=== PATIENT | male | born 1950 | race Caucasian/White ===

== ENCOUNTER 2017-05-12 17:10 | Inpatient (IN) | payer MEDICARE, OTHER ==
[~2017-05-12] VITALS: Ht 180.3 cm; Wt 111.7 kg
[2017-05-12 18:10] VITALS: BP 135/69
[2017-05-12] MEDS ORDERED: fentaNYL INJECTION 100 MCG/2 ML AMP ONE (18:40)
[2017-05-12 19:00] VITALS: BP 129/61
[2017-05-12 19:00] LABS: BASOPHILS % (AUTO) 0 % (0-10); EOSINOPHILS % (AUTO) 0 % (0-10); LYMPHOCYTES # (AUTO) 0.5 X 10^3 (1.0-4.0); LYMPHOCYTES % (AUTO) 2 % (12-44); MEAN CORPUSCULAR HEMOGLOBIN 27 PG (25-34); MEAN CORPUSCULAR HGB CONC 32 G/DL (32-36); MEAN CORPUSCULAR VOLUME 87 FL (80-99); MEAN PLATELET VOLUME 12.2 FL (7.4-10.4); MONOCYTES # (AUTO) 0.4 X 10^3 (0.0-1.0); MONOCYTES % (AUTO) 2 % (0-12); NEUTROPHILS # (AUTO) 22.4 X 10^3 (1.8-7.8); NEUTROPHILS % (AUTO) 96 % (42-75); PLATELET COUNT 339 10^3/uL (130-400); RED BLOOD COUNT 4.66 10^6/uL (4.35-5.85); RED CELL DISTRIBUTION WIDTH 17.7 % (10.0-14.5); WHITE BLOOD COUNT 23.2 10^3/uL (4.3-11.0)
[2017-05-12] MEDS ORDERED: fentaNYL PCA 300 MCG/30 ML VIAL ONE (19:11)
[2017-05-12] MEDS ORDERED: 1/2 NS W/KCL 20 MEQ/L 1,000 ML IV ONE (19:12)
[2017-05-12 19:21] LABS: ALANINE AMINOTRANSFERASE 27 U/L (0-55); ALBUMIN 3.4 GM/DL (3.2-4.5); AMYLASE 20 U/L (25-125); ANION GAP 14 MMOL/L (5-14); ASPARTATE AMINO TRANSFERASE 43 U/L (5-34); BILIRUBIN,TOTAL 0.3 MG/DL (0.1-1.0); BLOOD UREA NITROGEN 22 MG/DL (7-18); BUN/CREATININE RATIO 13 (0-20); CALCIUM 8.3 MG/DL (8.5-10.1); CARBON DIOXIDE 18 MMOL/L (21-32); CHLORIDE 107 MMOL/L (98-107); CREATININE SERUM 1.75 MG/DL (0.60-1.30); GFR ESTIMATED 39; GLUCOSE 358 MG/DL (70-105); HEMOLYSIS 6 (-100-29); ICTERUS 0.1 (-100-1.9); LIPASE < 4 U/L (8-78); LIPEMIA -1 (-100-49); POTASSIUM 4.8 MMOL/L (3.6-5.0); SODIUM 139 MMOL/L (135-145); TOTAL PROTEIN 6.9 GM/DL (6.4-8.2)
--- NOTE | 2017-05-12 19:33 | Diagnostic Imaging Report ---
EXAM: CHEST 1 VIEW, AP/PA ONLY INDICATION: Pneumothorax. COMPARISON: None. FINDINGS: Markedly low lung volumes. Left chest tube. No pneumothorax. Probable small left pleural effusion. Bibasilar atelectasis. Normal heart size. No acute osseous findings. Surgical clips in the upper abdomen. Epidural spinal stimulator. IMPRESSION: Left chest tube. Markedly low lung volumes. No pneumothorax identified. Probable small left pleural effusion. Dictated by: Dictated on workstation # [id number]
[2017-05-12 20:00] VITALS: BP 125/64
[2017-05-12] MEDS ORDERED: FUROSEMIDE 40 MG/4 ML INJ (LASIX) IVP PRN (20:45)
[2017-05-12 21:00] VITALS: BP 135/62
[2017-05-12] MEDS: inSUlin (REGULAR) HUMAN 1 UNIT/0.01 ML (CHARGE PER UNIT) SC SCH (21:00)
[2017-05-12 22:00] VITALS: BP 133/67
--- NOTE | 2017-05-12 22:56 | Progress Note-Standard ---
Standard Progress Note Progress Notes/Assess & Plan Date Seen by Provider: May 12, 2017 Time Seen by Provider: 17:30 Progress/Assessment & Plan s/p extensive ERICKA and laparoscopic gastric sleeve resection. spontaneous left PTX during surgery. 24 Fr chest tube placed. no air leak no drainage. multiple medical comorbidities including liver cirrhosis, OLGA, and CHF. will manage conservatively. NPO, bowel rest, abx and monitor labs. when stable then phase 1 clear liquid diet slowly. JOSEPHINE NOBLE MD May 12, 2017 22:56
[2017-05-12 23:00] VITALS: BP 143/74
[2017-05-13] VITALS (17 sets, daily range): BP systolic 135–193; BP diastolic 59–81
[2017-05-13] MEDS ORDERED: fentaNYL PCA 300 MCG/30 ML VIAL ONE (00:20)
[2017-05-13] MEDS: fentaNYL PCA 300 MCG/30 ML VIAL IV PRN ×5 (00:39→19:29)
[2017-05-13 04:25] LABS: BASOPHILS % (AUTO) 0 % (0-10); EOSINOPHILS % (AUTO) 0 % (0-10); LYMPHOCYTES # (AUTO) 1.1 X 10^3 (1.0-4.0); MEAN CORPUSCULAR HEMOGLOBIN 27 PG (25-34); MEAN CORPUSCULAR HGB CONC 32 G/DL (32-36); MEAN CORPUSCULAR VOLUME 86 FL (80-99); MEAN PLATELET VOLUME 12.2 FL (7.4-10.4); MONOCYTES # (AUTO) 1.1 X 10^3 (0.0-1.0); MONOCYTES % (AUTO) 8 % (0-12); NEUTROPHILS # (AUTO) 11.5 X 10^3 (1.8-7.8); NEUTROPHILS % (AUTO) 83 % (42-75); PLATELET COUNT 328 10^3/uL (130-400); RED CELL DISTRIBUTION WIDTH 17.7 % (10.0-14.5); WHITE BLOOD COUNT 13.7 10^3/uL (4.3-11.0)
[2017-05-13 04:27] LABS: LYMPHOCYTES % (AUTO) 9 % (12-44)
[2017-05-13 04:51] LABS: CALCIUM 8.3 MG/DL (8.5-10.1); CREATININE SERUM 1.5 MG/DL (0.60-1.30); ICTERUS 0.1 (-100-1.9); MAGNESIUM 2.1 MG/DL (1.8-2.4); PHOSPHORUS 2.9 MG/DL (2.3-4.7)
[2017-05-13 04:54] LABS: POTASSIUM 5.4 MMOL/L (3.6-5.0)
[2017-05-13] MEDS ORDERED: 1/2 NS W/KCL 20 MEQ/L 1,000 ML IV ONE (05:53)
[2017-05-13] MEDS ORDERED: POTASSIUM CL 10MEQ/50ML IVPB 50 ML IV SCH (06:00)
[2017-05-13] MEDS ORDERED: MAGNESIUM 1 GM/100 ML IVPB 100 ML IV SCH (06:00)
[2017-05-13] MEDS ORDERED: ONDANSETRON 4 MG/2 ML (SDV) Z0FRAN ONE (06:10)
[2017-05-13] MEDS: inSUlin (REGULAR) HUMAN 1 UNIT/0.01 ML (CHARGE PER UNIT) SC SCH ×4 (06:10→22:40)
[2017-05-13] MEDS: NS IV 1000 ML 1,000 ML IV SCH ×2 (06:24→18:28)
[2017-05-13] MEDS ORDERED: ONDANSETRON 4 MG/2 ML (SDV) Z0FRAN IV PRN (06:30)
--- NOTE | 2017-05-13 07:02 | Pulmonary Consultation ---
History of Present Illness History of Present Illness Date of Consultation 05/13/17 06:57 Time Seen by Provider: 06:20 Date of Admission History of Present Illness 66yo with hx of cirrhosis, OLGA (compliant with CPAP), and CHF PT is s/p gastric sleeve and developed spontaneous left PTX he now has a 24fr chest tube in place and is to suction currently. Left lung reexpanded post chest tube and this AM CXR shows no PTX. There is no leak in chest tube system currently. Pt is doing better c/w yesterday. He has never had PTX in the past. I am consulted for ICU management. Allergies and Home Medications Allergies Coded Allergies: codeine (Verified Allergy, Severe, 05/12/17) metoclopramide (Verified Allergy, Severe, 05/12/17) metoprolol (Verified Allergy, Mild, 05/12/17) SENSITIVITY TO MEDICATION DOSING. Home Medications Amlodipine Besylate 10 Mg Tablet, 10 MG PO HS, (Reported) Aspirin 81 Mg Tablet.dr, 81 MG PO DAILY, (Reported) Diphenhydramine HCl 25 Mg Capsule, 25 MG PO HS, (Reported) Furosemide 20 Mg Tablet, 20 MG PO DAILY PRN for SWELLING, (Reported) Insulin Glargine,Hum.rec.anlog 100 Unit/1 Ml Insuln.pen, 70 UNITS SC HS, ( Reported) Insulin Lispro 100 Unit/1 Ml Insuln.pen, 15-45 UNITS SC AC, (Reported) Ondansetron HCl 4 Mg Tablet, 4 MG PO Q6H PRN for NAUSEA/VOMITING-1ST LINE, ( Reported) Pantoprazole Sodium 40 Mg Tablet.dr, 40 MG PO DAILY, (Reported) Pregabalin 75 Mg Capsule, 75 MG PO DAILY, (Reported) Pregabalin 75 Mg Capsule, 150 MG PO HS, (Reported) TAKES 2 (75MG) CAPSULES Rosuvastatin Calcium 20 Mg Tablet, 20 MG PO HS, (Reported) Venlafaxine HCl 75 Mg Cap.er.24h, 75 MG PO DAILY, (Reported) Past Fgptmsl-Rzamjo-Azzmvx Hx Patient Social History Alcohol Use: Denies Use Recreational Drug Use: No Smoking Status: Former Smoker Recent Foreign Travel: No Contact w/Someone Who Travel: No Recent Infectious Disease Expo: No Recent Hopitalizations: Yes (February for back procedure, September for left great toe amputation) Physical Abuse Screen: No Sexual Abuse: No Immunizations Up To Date PED Vaccines UTD: No Date of Pneumonia Vaccine: Sep 17, 2016 Seasonal Allergies Seasonal Allergies: No Respiratory Respiratory Disorders: Sleep Apnea Reproductive System Sexually Transmitted Disease: No HIV/AIDS: No Gastrointestinal Gastrointestinal Disorders: Pancreatitis, Cirrhosis Musculoskeletal Musculoskeletal Disorders: Chronic Back Pain HEENT HEENT Disorders: Cataract Loss of Vision: Denies Hearing Impairment: Hard of Hearing, Bilateral Hearing Aide Review of Systems Time Seen by Provider: 08:24 Exam Exam Vital Signs Date Time Temp Pulse Resp B/P (MAP) Pulse Ox O2 Delivery O2 Flow Rate FiO2 05/13/17 06:05 12 05/13/17 06:00 71 13 152/66 94 NIV CPAP 3.00 05/13/17 05:00 78 22 162/72 95 NIV CPAP 3.00 05/13/17 04:00 94 NIV CPAP 3.00 05/13/17 04:00 74 27 153/66 94 NIV CPAP 3.00 05/13/17 03:54 98.2 NIV CPAP 3.00 05/13/17 03:00 79 15 151/72 94 NIV CPAP 3.00 05/13/17 02:00 81 13 152/66 93 NIV CPAP 3.00 05/13/17 01:00 86 05/13/17 01:00 86 22 147/59 94 NIV CPAP 3.00 05/13/17 00:39 19 05/13/17 00:33 19 05/13/17 00:00 94 NIV CPAP 3.00 05/13/17 00:00 86 14 135/65 94 NIV CPAP 3.00 05/12/17 23:00 90 19 143/74 94 NIV CPAP 3.00 05/12/17 22:00 92 17 133/67 92 NIV CPAP 3.00 05/12/17 21:15 92 NIV CPAP 3.00 05/12/17 21:14 NIV CPAP 3.00 05/12/17 21:00 92 23 135/62 90 OxyMask 10.00 05/12/17 20:00 94 NIV CPAP 3.00 05/12/17 20:00 83 17 125/64 92 OxyMask 10.00 05/12/17 19:38 16 05/12/17 19:25 97.7 OxyMask 10.00 05/12/17 19:00 87 19 129/61 92 OxyMask 10.00 05/12/17 19:00 87 05/12/17 18:10 97.8 102 16 135/69 90 OxyMask 10.00 05/12/17 18:10 OxyMask 10.00 I & O 05/13/17 07:00 Intake Total 1000 ml Output Total 1225 ml Balance -225 ml General Appearance: No Apparent Distress, WD/WN Neck: Full Range of Motion, Normal Inspection Respiratory: Chest Non Tender, No Accessory Muscle Use, No Respiratory Distress , Decreased Breath Sounds Capillary Refill: Less Than 3 Seconds Results Lab Laboratory Tests 05/12/17 18:54 05/13/17 03:53 Assessment/Plan Assessment/Plan S/p gastric sleeve - pain control spontaneous PTX - now resolved on CXR and no leak in chest tube system. -PTX resolved quickly after chest tube placement. I am going to proceed with chest tube clamping and repeat CXR in 4 hrs. I discussed with Dr. Knight and he agrees. With nature of PTX and the quick resolution i believe we will be able expedite d/cing chest tube. Leukocytosis - probably reactive -monitor OLGA -He has CPAP at bedside CHF -monitor acute renal failure with metabolic acidosis -improving -monitor -IVF Hyperkalameia -? hemolyzed -repeat Chem at 11:00 60 mins spent with patient and medical staff. I also d/w Dr. Knight plan of care. Clinical Quality Measures DVT/VTE Risk/Contraindication: Risk Factor Score Per Nursin RFS Level Per Nursing on Admit: 4+=Very High EVERETT SEVILLA DO May 13, 2017 07:02
[2017-05-13] MEDS ORDERED: ROSU20TA PO (08:21)
[2017-05-13] MEDS ORDERED: PREG75CA PO ×2 (08:21)
[2017-05-13] MEDS ORDERED: ASPI-983 PO (08:21)
[2017-05-13] MEDS ORDERED: DIPH25CA79 PO (08:21)
[2017-05-13] MEDS ORDERED: PANT40TA3 PO (08:21)
[2017-05-13] MEDS ORDERED: INSU100I23 SC (08:21)
[2017-05-13] MEDS ORDERED: FURO20TA4 PO (08:21)
[2017-05-13] MEDS ORDERED: VENL75CA93 PO (08:21)
[2017-05-13] MEDS ORDERED: ONDA4TAB10 PO (08:21)
[2017-05-13] MEDS ORDERED: INSU100I10 SC (08:21)
[2017-05-13] MEDS ORDERED: AMLO10TA2 PO (08:21)
--- NOTE | 2017-05-13 09:07 | Diagnostic Imaging Report ---
EXAMINATION: Portable upright radiograph of the chest. INDICATION: Left pneumothorax. COMPARISON: 05/12/2017. FINDINGS: There is a left-sided chest tube. No pneumothorax is seen. There is left basilar atelectasis, however. A small left pleural effusion is probably present. There is improved right basilar atelectasis when compared to 05/12/2017. Overall, there is slight improvement in the lung volumes. The heart size is at the upper limits of normal. Pulse generators projecting over the lower thoracic spine are seen. IMPRESSION: Bibasilar atelectasis and suggestion of a small left effusion, slightly improved from the prior exam. Dictated by: Dictated on workstation # [id number]
--- NOTE | 2017-05-13 09:14 | Consultation-Hospitalist ---
HPI History of Present Illness: HPI/Chief Complaint CC: Medical management following a complicated gastric sleeve procedure with subsequent left pneumothorax HPI: This is a 66-year-old white male clinic patient of Lorraine Foster in [place] the presents to the ICU at [facility] transferred from [facility] from Dr. 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 Currently he is feeling well able to move around and pneumothorax chest tube has been clamped in preparation removal later today. Overall he did not require any type of ventilator support through the night and has had no issues since admitted to the ICU. Source: patient Exam Limitations: no limitations Date Seen 05/13/17 Attending Physician Audrey Knight MD PCP Eleanor Foster Referring Physician Date of Admission May 12, 2017 at 18:21 Home Medications & Allergies Home Medications Reviewed patient Home Medication Reconciliation Form Allergies Allergies Coded Allergies codeine (Verified Allergy, Severe, 05/12/17) metoclopramide (Verified Allergy, Severe, 05/12/17) metoprolol (Verified Allergy, Mild, 05/12/17) SENSITIVITY TO MEDICATION DOSING. Past Hwhxggu-Srsars-Wlgslz Hx Patient Social History Marrital Status: Employed/Student: retired Alcohol Use: Denies Use Recreational Drug Use: No Smoking Status: Former Smoker Physical Abuse Screen: No Sexual Abuse: No Recent Foreign Travel: No Contact w/other who traveled: No Recent Hopitalizations: Yes (February for back procedure, September for left great toe amputation) Recent Infectious Disease Expo: No Immunizations Up To Date Date of Pneumonia Vaccine: Sep 17, 2016 Seasonal Allergies Seasonal Allergies: No Surgeries HX Surgeries: Yes Surgeries: Abdominal Respiratory Hx Respiratory Disorders: Yes Respiratory Disorders: Sleep Apnea Cardiovascular Hx Cardiovascular Disorders: Yes Cardiac Disorders: Hypertension Neurological Hx Neurological Disorders: No Reproductive System Sexually Transmitted Disease: No HIV/AIDS: No Genitourinary Hx Genitourinary Disorders: No Gastrointestinal Hx Gastrointestinal Disorders: Yes Gastrointestinal Disorders: Pancreatitis, Cirrhosis Musculoskeletal Hx Musculoskeletal Disorders: Yes Musculoskeletal Disorders: Chronic Back Pain Endocrine Hx Endocrine Disorders: No HEENT HX ENT Disorders: No HEENT Disorders: Cataract Loss of Vision: Denies Hearing Impairment: Hard of Hearing, Bilateral Hearing Aide Review of Systems Date Seen by Provider: May 13, 2017 Time Seen by Provider: 09:30 Constitutional: see HPI EENTM: no symptoms reported Respiratory: other (chest tube pain left side) Cardiovascular: no symptoms reported Gastrointestinal: no symptoms reported Genitourinary: no symptoms reported Musculoskeletal: no symptoms reported Skin: no symptoms reported Psychiatric/Neurological: No Symptoms Reported All Other Systems Reviewed Negative Unless Noted: Yes Physical Exam Physical Exam Vital Signs Vital Sign - Last 12Hours 05/12/17 18:10 Temp 97.8 Pulse 102 Resp 16 B/P (MAP) 135/69 Pulse Ox 90 O2 Delivery OxyMask O2 Flow Rate 10.00 Capillary Refill : Less Than 3 Seconds General Appearance: No Apparent Distress, WD/WN, Chronically ill, Obese Eyes: Bilateral Eye Normal Inspection, Bilateral Eye PERRL HEENT: PERRL/EOMI, Normal ENT Inspection, Pharynx Normal Neck: Full Range of Motion, Normal Inspection, Non Tender, Supple, Carotid Bruit Respiratory: Chest Non Tender, Lungs Clear, Normal Breath Sounds, No Accessory Muscle Use, No Respiratory Distress Cardiovascular: Regular Rate, Rhythm, No Edema, No Gallop, No JVD, No Murmur, Normal Peripheral Pulses Gastrointestinal: Normal Bowel Sounds, No Organomegaly, No Pulsatile Mass, Non Tender, Soft Back: Normal Inspection, No CVA Tenderness, No Vertebral Tenderness Extremity: Normal Capillary Refill, Normal Inspection, Normal Range of Motion, Non Tender, No Calf Tenderness, No Pedal Edema Neurologic/Psychiatric: Alert, Oriented x3, No Motor/Sensory Deficits, Normal Mood/Affect Skin: Normal Color, Warm/Dry Lymphatic: No Adenopathy Results Results/Procedures Lab Laboratory Tests 05/12/17 18:54 05/13/17 03:53 Assessment/Plan Admission Diagnosis Assessment: Complicated gastric sleeve procedure resulting in 4 hours of surgery with adhesions and left-sided pneumothorax status post chest tube placement Hypertension History of pancreatitis status post resection remotely Obstructive sleep apnea compliant with treatment DM GERD Assessment and Plan Plan: Maintain on all home meds Pain control Chest tube removal when surgery deems criteria are met Sleep apnea treatment Ambulate Clinical Quality Measures DVT/VTE Risk/Contraindication: Risk Factor Score Per Nursin RFS Level Per Nursing on Admit: 4+=Very High EVERETT WINKLER DO May 13, 2017 09:14
--- OUTSIDE RECORDS SUMMARY | 2017-05-13 09:24 | XMS REPORT | Continuity of Care Document ---
Author Author [facility] Organization [facility] Address Unknown Phone Unavailable Care Team Providers Care Branch Banker Name Role Phone Nya Fosterna PCP [phone] Source Comments Some departments are not documenting in the electronic medical record. If you do not see the information that you expected, contact Release of Information in the Health Information Management department at [phone] for further assistance in locating additional records.[facility] Active Allergies and Adverse Reactions Allergen Noted Date Severity Reactions Comments Codeine 08/13/2013 RASH Reglan 08/13/2013 NAUSEA AND VOMITING Current Medications Prescription Sig. Disp. Refills Start End Date Status Date PARoxetine (PAXIL) 20 mg Take 20 mg by mouth Active tablet daily. NVPUTS-KXAPRXC-DKREQLZ PO Take by mouth three Active times daily. pantoprazole DR Take 40 mg by mouth twice Active (PROTONIX) 40 mg tablet daily. hydrOXYzine (ATARAX) 25 Take 25 mg by mouth three Active mg tablet times daily as needed. insulin NPH/REG 70/30 Inject into area(s) as Active (NOVOLIN 70/30) 100 directed twice daily unit/mL (70/30) injection before meals. oxyCODone (OXY-IR) 30 mg Take 30 mg by mouth every Active tablet 4 hours as needed ondansetron (ZOFRAN) 8 mg Take 8 mg by mouth every Active tablet 8 hours as needed. GUAIFENESIN (MUCINEX PO) Take by mouth. Active ibuprofen (MOTRIN) 200 mg Take 200 mg by mouth Active tablet every 6 hours as needed. AMLODIPINE BESYLATE Take 10 mg by mouth Active (NORVASC PO) daily. benazepril (LOTENSIN) 20 Take 20 mg by mouth Active mg tablet daily. simvastatin (ZOCOR) 20 mg Take 20 mg by mouth at Active tablet bedtime daily. dicyclomine (BENTYL) 10 Take 10 mg by mouth four Active mg capsule times daily. gabapentin (NEURONTIN) Take 300 mg by mouth Active 300 mg capsule three times daily. diphenoxylate/atropine Take 1 Tab by mouth four Active (LOMOTIL) 2.5/0.025 mg times daily as needed. tablet aspirin 81 mg chewable Take 81 mg by mouth Active tablet daily. albuterol-ipratropium Inhale 3 mL solution as Active (DUO-NEB, DUO-VENT) 0.5 directed three times mg-3 mg(2.5 mg base)/3 mL daily as needed. nebulizer solution DORZOLAMIDE HCL/TIMOLOL Place into or around Active MALEAT eye(s). (DORZOLAMIDE-TIMOLOL OP) latanoprost (XALATAN) Place 1 Drop into or Active 0.005 % ophthalmic around eye(s) at bedtime solution daily. pioglitazone (ACTOS) 30 Take 1 Tab by mouth 90 Tab 3 08/13/20 Active mg tablet daily. 13 INSULIN Inject into area(s) as Active GLARGINE,HUM.REC.ANLOG directed. (LANTUS SC) insulin pump -LISPRO- by SubQ Pump route. Active Patients Own rifaximin (XIFAXAN) 550 Take 1 Tab by mouth twice 60 Tab 11 03/14/20 Active mg tab daily. 14 liraglutide(+) (VICTOZA Inject 0.3 mL into 3 Syringe 11 09/19/20 Active 3-SHERRY) 0.6 mg/0.1 mL (18 area(s) as directed 14 mg/3 mL) pnij daily. nadolol(+) (CORGARD) 40 Take 1 Tab by mouth at 30 Tab 11 05/25/20 Active mg tablet bedtime daily. 15 Active Problems Problem Noted Date Cirrhosis (HCC) 09/19/2014 DM (diabetes mellitus) (HCC) 03/14/2014 CLEMENTS (nonalcoholic steatohepatitis) 03/14/2014 Obesity 03/14/2014 Social History Tobacco Use Types Packs/Day Years Used Date Former Smoker Quit: 08/13/1989 Smokeless Tobacco: Former Quit: User 08/13/1991 Alcohol Use Drinks/Week oz/Week Comments No former Last Filed Vital Signs Vital Sign Reading Time Taken Blood Pressure 153/62 09/19/2014 10:44 AM [employer] Pulse 76 09/19/2014 10:44 AM [employer] Temperature 36.3 C (97.4 F) 09/19/2014 10:44 AM [employer] Respiratory Rate 17 09/19/2014 10:44 AM [employer] Height 1.803 m (5' 11") 09/19/2014 10:44 AM [employer] Weight 119.296 kg (263 lb) 09/19/2014 10:44 AM [employer] Body Mass Index 36.7 09/19/2014 10:44 AM [employer] Oxygen Saturation 98% 09/19/2014 10:44 AM [employer] Plan of Care Health Maintenance Due Date Last Done Comments Hepatitis C Screening 1950 Physical (Comprehensive) 1957 Exam Pertussis Vaccine 1961 Tetanus Vaccine 1967 Colorectal Cancer 2000 Screening Shingles Vaccine 2010 Abdominal Aortic Aneurysm 2015 Screening Prevnar/Pneumovax (#1) 2015 Influenza Vaccine 07/18/2017 Results from Last 3 Months Not on file
[2017-05-13] MEDS ORDERED: FUROSEMIDE 20 MG (LASIX) TAB PO PRN (10:45)
[2017-05-13] MEDS ORDERED: INSULIN LISPRO 20 UNIT SC SCH (11:00)
[2017-05-13 11:28] LABS: CALCIUM 8.7 MG/DL (8.5-10.1); CREATININE SERUM 1.33 MG/DL (0.60-1.30); ICTERUS 0.1 (-100-1.9); POTASSIUM 4.5 MMOL/L (3.6-5.0)
[2017-05-13] MEDS: ONDANSETRON 4 MG (ZOFRAN) ORAL DISSOLVE TAB PO PRN (11:37)
--- NOTE | 2017-05-13 11:57 | Diagnostic Imaging Report ---
EXAMINATION: Portable upright radiograph of the chest. INDICATION: Followup left pneumothorax. FINDINGS: There is a left chest tube again seen. No pneumothorax. Bibasilar atelectasis is again noted with low lung volumes. There is suggestion of a small left pleural effusion. A pulse generator projecting over the lower thoracic spine is seen. IMPRESSION: No pneumothorax. Low lung volumes with bibasilar atelectasis. Dictated by: Dictated on workstation # [id number]
[2017-05-13] MEDS: inSUlin ASPART (NovoLOG) 1 UNIT/0.01 ML (CHARGE PER UNIT) SC SCH ×2 (12:15→16:00)
--- NOTE | 2017-05-13 14:49 | Progress Note (SOAP) ---
Subjective Date Seen by Provider: May 13, 2017 Time Seen by Provider: 14:00 Subjective/Events-last exam doing well. pain controlled. no nausea/vomiting. no SOB. no airleak or any drainage. Objective Exam Vital Signs Date Time Temp Pulse Resp B/P (MAP) Pulse Ox O2 Delivery O2 Flow Rate FiO2 05/13/17 13:00 64 05/13/17 12:04 23 05/13/17 12:00 Nasal Cannula 2.00 05/13/17 10:07 Nasal Cannula 3.00 05/13/17 09:00 71 17 174/71 91 Nasal Cannula 2.00 05/13/17 08:00 Nasal Cannula 2.00 05/13/17 08:00 98.6 Nasal Cannula 2.00 05/13/17 08:00 76 16 172/70 92 Nasal Cannula 2.00 05/13/17 07:00 69 22 148/66 93 Nasal Cannula 2.00 05/13/17 07:00 69 05/13/17 06:05 12 05/13/17 06:00 71 13 152/66 94 NIV CPAP 3.00 05/13/17 05:00 78 22 162/72 95 NIV CPAP 3.00 05/13/17 04:00 94 NIV CPAP 3.00 05/13/17 04:00 74 27 153/66 94 NIV CPAP 3.00 05/13/17 03:54 98.2 NIV CPAP 3.00 05/13/17 03:00 79 15 151/72 94 NIV CPAP 3.00 05/13/17 02:00 81 13 152/66 93 NIV CPAP 3.00 05/13/17 01:00 86 05/13/17 01:00 86 22 147/59 94 NIV CPAP 3.00 05/13/17 00:39 19 05/13/17 00:33 19 05/13/17 00:00 94 NIV CPAP 3.00 05/13/17 00:00 86 14 135/65 94 NIV CPAP 3.00 05/12/17 23:00 90 19 143/74 94 NIV CPAP 3.00 05/12/17 22:00 92 17 133/67 92 NIV CPAP 3.00 05/12/17 21:15 92 NIV CPAP 3.00 05/12/17 21:14 NIV CPAP 3.00 05/12/17 21:00 92 23 135/62 90 OxyMask 10.00 05/12/17 20:00 94 NIV CPAP 3.00 05/12/17 20:00 83 17 125/64 92 OxyMask 10.00 05/12/17 19:38 16 05/12/17 19:25 97.7 OxyMask 10.00 05/12/17 19:00 87 19 129/61 92 OxyMask 10.00 05/12/17 19:00 87 05/12/17 18:10 97.8 102 16 135/69 90 OxyMask 10.00 05/12/17 18:10 OxyMask 10.00 I & O 05/13/17 07:00 Intake Total 1000 ml Output Total 1225 ml Balance -225 ml Capillary Refill : Less Than 3 Seconds General Appearance: No Apparent Distress HEENT: PERRL/EOMI Neck: Full Range of Motion Respiratory: Lungs Clear, Normal Breath Sounds Cardiovascular: Regular Rate, Rhythm Gastrointestinal: normal bowel sounds, soft, other (wounds clean/dry) Extremity: Normal Capillary Refill Neurologic/Psychiatric: Alert, Oriented x3 Skin: Normal Color Lymphatic: No Adenopathy Results Lab Laboratory Tests 05/12/17 18:54: White Blood Count 23.2H, Red Blood Count 4.66, Hemoglobin 12.7L, Hematocrit 40, Mean Corpuscular Volume 87, Mean Corpuscular Hemoglobin 27, Mean Corpuscular Hemoglobin Concent 32, Red Cell Distribution Width 17.7H, Platelet Count 339, Mean Platelet Volume 12.2H, Neutrophils (%) (Auto) 96H, Lymphocytes (%) (Auto) 2L, Monocytes (%) (Auto) 2, Eosinophils (%) (Auto) 0, Basophils (%) (Auto) 0, Neutrophils # (Auto) 22.4H, Lymphocytes # (Auto) 0.5L, Monocytes # (Auto) 0.4, Eosinophils # (Auto) 0.0, Basophils # (Auto) 0.0, Sodium Level 139, Potassium Level 4.8, Chloride Level 107, Carbon Dioxide Level 18L, Anion Gap 14, Blood Urea Nitrogen 22H, Creatinine 1.75H, Estimat Glomerular Filtration Rate 39, BUN/ Creatinine Ratio 13, Glucose Level 358H, Calcium Level 8.3L, Total Bilirubin 0.3 , Aspartate Amino Transf (AST/SGOT) 43H, Alanine Aminotransferase (ALT/SGPT) 27 , Alkaline Phosphatase 106, Total Protein 6.9, Albumin 3.4, Amylase Level 20L, Lipase < 4L 05/12/17 20:17: Glucometer 324H 05/13/17 03:53: White Blood Count 13.7H, Red Blood Count 4.40, Hemoglobin 12.0L, Hematocrit 38L , Mean Corpuscular Volume 86, Mean Corpuscular Hemoglobin 27, Mean Corpuscular Hemoglobin Concent 32, Red Cell Distribution Width 17.7H, Platelet Count 328, Mean Platelet Volume 12.2H, Neutrophils (%) (Auto) 83H, Lymphocytes (%) (Auto) 9L, Monocytes (%) (Auto) 8, Eosinophils (%) (Auto) 0, Basophils (%) (Auto) 0, Neutrophils # (Auto) 11.5H, Lymphocytes # (Auto) 1.1, Monocytes # (Auto) 1.1H, Eosinophils # (Auto) 0.0, Basophils # (Auto) 0.0, Sodium Level 138, Potassium Level 5.4H, Chloride Level 108H, Carbon Dioxide Level 18L, Anion Gap 12, Blood Urea Nitrogen 24H, Creatinine 1.50H, Estimat Glomerular Filtration Rate 47, BUN/ Creatinine Ratio 16, Glucose Level 307H, Calcium Level 8.3L, Phosphorus Level 2.9, Magnesium Level 2.1 05/13/17 10:59: Sodium Level 140, Potassium Level 4.5, Chloride Level 107, Carbon Dioxide Level 23, Anion Gap 10, Blood Urea Nitrogen 22H, Creatinine 1.33H, Estimat Glomerular Filtration Rate 54, BUN/Creatinine Ratio 17, Glucose Level 225H, Calcium Level 8.7 05/13/17 12:10: Glucometer 206H Assessment/Plan Assessment/Plan Assess & Plan/Chief Complaint s/p laparoscopic ERICKA and gastric sleeve resection with spontaneous PTX. no airleak or pleuravac drainage. pain controlled. no PTX on f/u cxr. will leave CT in on air leak and monitor for drainage. start phase 1 clear liquid diet. transfer to floor. Clinical Quality Measures DVT/VTE Risk/Contraindication: Risk Factor Score Per Nursin RFS Level Per Nursing on Admit: 4+=Very High JOSEPHINE NOBLE MD May 13, 2017 2:49 pm
[2017-05-13] MEDS ORDERED: CEFEPIME INJECTION 1,000 MG in NS (IVPB) 50 ML IV SCH (21:00)
--- NOTE | 2017-05-13 21:05 | Diagnostic Imaging Report ---
Indication: Followup pneumothorax. Comparison: 05/13/2017 at 11:37 AM. Findings: Stable left chest tube. No radiographically apparent pneumothorax. Possible trace left pleural effusion. Stable very low lung volumes with probable basilar atelectasis. No new airspace disease. Posterior lower lobes are very poorly evaluated by portable radiography and low lung volumes. Stable cardiomegaly. IMPRESSION: 1. Stable left chest tube without radiographically apparent residual pneumothorax. Dictated by: Dictated on workstation # [id number]
[2017-05-13] MEDS: amLODIPine 10 MG (NORVASC) TAB PO SCH (21:43)
[2017-05-13] MEDS: diphenhydrAMINE 25 MG TAB (BENADRYL) PO SCH (21:43)
[2017-05-13] MEDS: ROSUVASTATIN 20 MG (CRESTOR) TABLET PO SCH (21:43)
[2017-05-13] MEDS: PREGABALIN 75 MG (LYRICA) CAP PO SCH (21:43)
[2017-05-13] MEDS ORDERED: CEFEPIME 1 GM (MAXIPIME) VIAL ONE (21:45)
[2017-05-13] MEDS ORDERED: NS (IVPB) 50 ML ONE (21:45)
[2017-05-13] MEDS: inSUlin DETERMIR 1 UNIT/0.01 ML (LEVEMIR) CHARGE PER UNIT SQ SCH (22:40)
[2017-05-14] VITALS (10 sets, daily range): BP systolic 145–188; BP diastolic 67–88
[2017-05-14] MEDS: fentaNYL PCA 300 MCG/30 ML VIAL IV PRN ×2 (00:56→05:55)
[2017-05-14] MEDS: inSUlin ASPART (NovoLOG) 1 UNIT/0.01 ML (CHARGE PER UNIT) SC SCH ×3 (05:53→16:00)
[2017-05-14] MEDS: inSUlin (REGULAR) HUMAN 1 UNIT/0.01 ML (CHARGE PER UNIT) SC SCH ×4 (05:54→21:04)
[2017-05-14 06:35] LABS: BASOPHILS % (AUTO) 0 % (0-10); EOSINOPHILS # (AUTO) 0.1 10^3/uL (0.0-0.3); EOSINOPHILS % (AUTO) 0 % (0-10); LYMPHOCYTES # (AUTO) 2.8 X 10^3 (1.0-4.0); LYMPHOCYTES % (AUTO) 14 % (12-44); MEAN CORPUSCULAR HEMOGLOBIN 27 PG (25-34); MEAN CORPUSCULAR HGB CONC 31 G/DL (32-36); MEAN CORPUSCULAR VOLUME 87 FL (80-99); MEAN PLATELET VOLUME 12.7 FL (7.4-10.4); MONOCYTES # (AUTO) 1.9 X 10^3 (0.0-1.0); MONOCYTES % (AUTO) 10 % (0-12); NEUTROPHILS # (AUTO) 14.4 X 10^3 (1.8-7.8); NEUTROPHILS % (AUTO) 75 % (42-75); PLATELET COUNT 313 10^3/uL (130-400); RED BLOOD COUNT 4.55 10^6/uL (4.35-5.85); RED CELL DISTRIBUTION WIDTH 18.3 % (10.0-14.5); WHITE BLOOD COUNT 19.1 10^3/uL (4.3-11.0)
[2017-05-14 06:53] LABS: ANISOCYTOSIS MODERATE; BAND NEUTROPHILS 0 %; BASOPHILS % (MANUAL) 0 %; EOSINOPHILS % (MANUAL) 1 %; HYPOCHROMASIA MODERATE; LYMPHOCYTES % (MANUAL) 9 %; NEUTROPHILS % (MANUAL) 79 %; POIKILOCYTOSIS SLIGHT; REACTIVE LYMPHOCYTES 2 %; TARGET CELLS SLIGHT
[2017-05-14 06:54] LABS: MICROCYTOSIS SLIGHT
[2017-05-14 07:08] LABS: ALANINE AMINOTRANSFERASE 20 U/L (0-55); ALBUMIN 3.4 GM/DL (3.2-4.5); AMYLASE 20 U/L (25-125); ANION GAP 9 MMOL/L (5-14); ASPARTATE AMINO TRANSFERASE 31 U/L (5-34); BILIRUBIN,TOTAL 0.3 MG/DL (0.1-1.0); BLOOD UREA NITROGEN 20 MG/DL (7-18); BUN/CREATININE RATIO 18; CALCIUM 8.8 MG/DL (8.5-10.1); CARBON DIOXIDE 24 MMOL/L (21-32); CHLORIDE 106 MMOL/L (98-107); CREATININE SERUM 1.13 MG/DL (0.60-1.30); GFR ESTIMATED > 60; GLUCOSE 191 MG/DL (70-105); LIPASE 8 U/L (8-78); MAGNESIUM 2.2 MG/DL (1.8-2.4); PHOSPHORUS 1.8 MG/DL (2.3-4.7); POTASSIUM 4.2 MMOL/L (3.6-5.0); SODIUM 139 MMOL/L (135-145); TOTAL PROTEIN 6.8 GM/DL (6.4-8.2)
[2017-05-14] MEDS: ONDANSETRON 4 MG (ZOFRAN) ORAL DISSOLVE TAB PO PRN (07:33)
[2017-05-14] MEDS: ASPIRIN E.C. 81 MG (ECOTRIN) TAB PO SCH (08:29)
[2017-05-14] MEDS: PANTOPRAZOLE 40 MG (PROTONIX) TAB PO SCH (08:30)
[2017-05-14] MEDS: PREGABALIN 75 MG (LYRICA) CAP PO SCH ×2 (08:30→20:15)
[2017-05-14] MEDS: VENlafaxine XR 75 MG (EFFEXOR XR) CAP PO SCH (08:30)
[2017-05-14] MEDS: NS IV 1000 ML 1,000 ML IV SCH ×2 (08:30→23:08)
[2017-05-14] MEDS ORDERED: LORazepam 0.5 MG (ATIVAN) TABLET PO PRN (09:15)
[2017-05-14] MEDS: CEFEPIME INJECTION 1,000 MG in NS (IVPB) 50 ML IV SCH ×2 (09:25→20:14)
--- NOTE | 2017-05-14 09:38 | Diagnostic Imaging Report ---
EXAMINATION: Portable upright radiograph of the chest. INDICATION: Pneumothorax. COMPARISON: 05/13/2017. FINDINGS: A left chest tube is seen with no pneumothorax. There is a left pleural effusion. Stable bibasilar atelectasis and overall low lung volume, minimally improved from the prior exam. There is a pulse generator projecting over the lower thoracic spine seen. IMPRESSION: Minimally improved bibasilar atelectasis and low lung volumes. Dictated by: Dictated on workstation # [id number]
[2017-05-14] MEDS ORDERED: NS IV SCH (10:30)
[2017-05-14] MEDS ORDERED: FENTANYL IV SCH (10:30)
[2017-05-14] MEDS: LACTULOSE SYRUP 10GM/15ML (ENULOSE) 30ML UDC PO SCH ×2 (10:50→20:15)
[2017-05-14] MEDS: oxyCODONE 5 MG/5 ML ORAL SOLN (roxiCODONE) 5 ML UDC PO PRN ×2 (10:55→15:45)
[2017-05-14] MEDS: RT-ALBUTEROL/IPRATROPIUM 3 ML (DUONEB) VIAL INH SCH ×3 (11:39→19:22)
--- NOTE | 2017-05-14 11:49 | Progress Note-Hospitalist ---
Progress Note HPI/CC on Admission CC: Medical management following a complicated gastric sleeve procedure with subsequent left pneumothorax HPI: This is a 66-year-old white male clinic patient of Lorraine Foster in [place] the presents to the ICU at [facility] transferred from [facility] from Dr. 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 Currently he is feeling well able to move around and pneumothorax chest tube has been clamped in preparation removal later today. Overall he did not require any type of ventilator support through the night and has had no issues since admitted to the ICU. Progress Notes/Assess & Plan Date Seen 05/14/17 Time Seen by Provider: 10:00 Admission Dx/Process Assessment: Complicated gastric sleeve procedure resulting in 4 hours of surgery with adhesions and left-sided pneumothorax status post chest tube placement Hypertension History of pancreatitis status post resection remotely Obstructive sleep apnea compliant with treatment DM GERD Diagonsis/Assessment & Plan Chart Review: No fever Vitals stable WBC 19 CMP norm Sugar 200 CXR improved atelectasis Patient Interview: Pt states that he is experiencing shooting pain where his chest tube is. Pt states that his tummy is sore, but not as bad as where the chest tube is. Physical exam stable. Pt is okay with breathing treatments if they will help DC the chest tube Pt denies having BMs. Pt was informed he will receive meds for this. No fever, vital signs stable, pleasant, in mild pain due to left chest tube Regular rate and rhythm, clear to auscultation bilaterally but diminished in the bases with subtle crackles No edema Assessment: Complicated gastric sleeve procedure resulting in 4 hours of surgery with adhesions and left-sided pneumothorax status post chest tube placement POD # 1 Hypertension History of pancreatitis status post resection remotely Obstructive sleep apnea compliant with treatment DM GERD Plan: Maintain on all home meds Pain control Chest tube removal when surgery deems criteria are met Sleep apnea treatment Ambulate Breathing treatments to expand lungs Possible swingbed if cannot DC chest tube Meds to aid BMs Scribed by Josefina Hurtado under the direct supervision of Dr. Winkler. EVERETT WINKLER DO May 14, 2017 11:49
--- NOTE | 2017-05-14 17:12 | Diagnostic Imaging Report ---
INDICATION: Chest pain. COMPARISON: 05/14/2017 at 5:30 a.m. FINDINGS: Stable left chest tube. No pneumothorax. Stable low lung volumes with increase in patchy basilar airspace opacities, likely due to atelectasis. Possible trace left pleural effusion is unchanged. Stable cardiomegaly. IMPRESSION: 1. Stable left chest tube. No pneumothorax. 2. Persistent bibasilar atelectasis. Dictated by: Dictated on workstation # [id number]
[2017-05-14 17:19] LABS: ABG HCO3 24 MMOL/L (23-27); ABG OXYGEN SATURATION 91 % (94-100); ABG PCO2 46 MMHG (35-45); ABG PO2 59 MMHG (79-93); ABG TCO2 25.4 MMOL/L (21.0-31.0)
[2017-05-14 17:21] LABS: ABG PH 7.34 (7.37-7.43); ALLENS TEST POSITIVE; PATIENT TEMP 98.6
[2017-05-14] MEDS ORDERED: IOHEXOL 350 MG/ML 150 ML (OMNIPAQUE 350) VIAL IV ONE (18:15)
[2017-05-14] MEDS ORDERED: NS 100 ML (IVPB) BAG IV ONE (18:15)
--- NOTE | 2017-05-14 18:26 | Progress Note (SOAP) ---
Subjective Date Seen by Provider: May 14, 2017 Time Seen by Provider: 18:00 Subjective/Events-last exam developed decreased oxygen saturation and increased oxygen demand. still has some chest pain around distribution CT. no airleak. no PTX on repeat CXR. tolerating phase 1 clear liquids. Objective Exam Vital Signs Date Time Temp Pulse Resp B/P (MAP) Pulse Ox O2 Delivery O2 Flow Rate FiO2 05/14/17 15:55 99.0 93 17 188/79 88 Nasal Cannula 2.00 05/14/17 14:52 91 Nasal Cannula 5.00 05/14/17 12:30 98.0 80 18 152/68 94 Nasal Cannula 2.00 05/14/17 11:39 88 Nasal Cannula 3.00 05/14/17 08:35 93 Nasal Cannula 2.00 05/14/17 07:46 97.9 77 18 145/67 93 Nasal Cannula 2.00 05/14/17 06:28 18 05/14/17 04:00 96.4 61 24 165/75 90 NIV CPAP 05/14/17 00:00 97.4 69 20 156/67 91 NIV CPAP 05/13/17 20:20 90 Nasal Cannula 3.00 05/13/17 20:19 85 Room Air 05/13/17 20:00 Nasal Cannula 3.00 05/13/17 19:55 97.8 74 20 156/67 Nasal Cannula 2.00 I & O 05/14/17 07:00 Intake Total 1570 ml Output Total 850 ml Balance 720 ml Capillary Refill : Less Than 3 Seconds General Appearance: No Apparent Distress HEENT: PERRL/EOMI Neck: Full Range of Motion Respiratory: Decreased Breath Sounds, Other (left chest wall tenderness) Cardiovascular: Regular Rate, Rhythm Gastrointestinal: normal bowel sounds, soft, tenderness, other (wounds clean/ dry) Extremity: Normal Capillary Refill Neurologic/Psychiatric: Alert, Oriented x3 Skin: Normal Color Lymphatic: No Adenopathy Results Lab Laboratory Tests 05/13/17 21:04: Glucometer 303H 05/13/17 22:30: Glucometer 285H 05/14/17 05:26: Glucometer 192H 05/14/17 05:45: White Blood Count 19.1H, Red Blood Count 4.55, Hemoglobin 12.4L, Hematocrit 40, Mean Corpuscular Volume 87, Mean Corpuscular Hemoglobin 27, Mean Corpuscular Hemoglobin Concent 31L, Red Cell Distribution Width 18.3H, Platelet Count 313, Mean Platelet Volume 12.7H, Neutrophils (%) (Auto) 75, Lymphocytes (%) (Auto) 14 , Monocytes (%) (Auto) 10, Eosinophils (%) (Auto) 0, Basophils (%) (Auto) 0, Neutrophils # (Auto) 14.4H, Lymphocytes # (Auto) 2.8, Monocytes # (Auto) 1.9H, Eosinophils # (Auto) 0.1, Basophils # (Auto) 0.0, Neutrophils % (Manual) 79, Lymphocytes % (Manual) 9, Monocytes % (Manual) 9, Eosinophils % (Manual) 1, Basophils % (Manual) 0, Band Neutrophils 0, Reactive Lymphocytes 2, Hypochromasia MODERATE, Poikilocytosis SLIGHT, Anisocytosis MODERATE, Microcytosis SLIGHT, Macrocytosis MODERATE, Target Cells SLIGHT, Sodium Level 139, Potassium Level 4.2, Chloride Level 106, Carbon Dioxide Level 24, Anion Gap 9, Blood Urea Nitrogen 20H, Creatinine 1.13, Estimat Glomerular Filtration Rate > 60, BUN/Creatinine Ratio 18, Glucose Level 191H, Calcium Level 8.8, Phosphorus Level 1.8L, Magnesium Level 2.2, Total Bilirubin 0.3, Aspartate Amino Transf (AST/SGOT) 31, Alanine Aminotransferase (ALT/SGPT) 20, Alkaline Phosphatase 102, Total Protein 6.8, Albumin 3.4, Amylase Level 20L, Lipase 8 05/14/17 10:55: Glucometer 139H 05/14/17 16:29: Glucometer 128H 05/14/17 17:15: Blood Gas Puncture Site LEFT RADIAL, Blood Gas Patient Temperature 98.6, Arterial Blood pH 7.34*L, Arterial Blood Partial Pressure CO2 46H, Arterial Blood Partial Pressure O2 59L, Arterial Blood HCO3 24, Arterial Blood Total CO2 25.4, Arterial Blood Oxygen Saturation 91L, Arterial Blood Base Excess -1.0, Jostin Test POSITIVE, Blood Gas Ventilator Setting NO, Blood Gas Inspired Oxygen 15L NONREBREATHER Microbiology 05/12/17 MRSA Screen - Final, Complete MRSA not isolated Assessment/Plan Assessment/Plan Assess & Plan/Chief Complaint s/p laparoscopic ERICKA and gastric sleeve resection with spontaneous PTX. no airleak or pleuravac drainage. will leave CT in on air leak and monitor for drainage. start phase 1 clear liquid diet. developed increased oxygen demand and decreased saturation. slightly more chest pain along CT distribution. transferred back to ICU with ABG showing mild acidosis and hypercarbia. will increase IS, ambulation, and breathing treatments. also getting CT chest to r/o PE. Clinical Quality Measures DVT/VTE Risk/Contraindication: Risk Factor Score Per Nursin RFS Level Per Nursing on Admit: 4+=Very High JOSEPHINE NOBLE MD May 14, 2017 18:26
--- NOTE | 2017-05-14 18:54 | Diagnostic Imaging Report ---
PROCEDURE: CT angiography of the chest with contrast. TECHNIQUE: Multiple contiguous axial images were obtained through the chest after uneventful bolus administration of intravenous contrast. Reconstructed CTA MIP acquisitions were also performed. INDICATION: Chest pain status post gastric sleeve surgery. COMPARISON: Chest radiograph from earlier the same day. FINDINGS: Vasculature: No pulmonary emboli. No CT evidence of pulmonary hypertension or right ventricular strain. Thoracic aorta is normal in caliber. No aortic dissection or pseudoaneurysm. Heart and mediastinum: Visualized thyroid is normal. No supraclavicular or axillary lymphadenopathy. A few conspicuous but nonenlarged mediastinal lymph nodes are likely reactive in nature. No other intrathoracic lymphadenopathy. Cardiomegaly without pericardial effusion. Pleura: Trace bilateral pleural effusions, greater on the left. No pneumothorax. A left chest tube in place. Lungs and airway: No endoluminal lesion in the trachea or central bronchi. Subtotal consolidations in the bilateral basilar segments of the lower lobes. There are a few calcified pulmonary granulomas. Upper abdomen: Considerable changes from partial gastrectomy/gastric sleeve procedure. There is a trace amount of perihepatic fluid, which may be postoperative in nature. Musculoskeletal: No concerning osseous lesion. Epidural spinal stimulator leads terminating in the lower thoracic spine. IMPRESSION: 1. No pulmonary emboli. 2. Subtotal consolidations in the bilateral lower lobes are likely due to a combination of multifocal pneumonia and atelectasis. 3. Trace bilateral pleural effusions. 4. Trace perihepatic ascites, which is likely postoperative in nature. Findings were called to Dr. Treadwell at 6:55 PM on 05/14/2017. Dictated by: Dictated on workstation # [id number]
[2017-05-14] MEDS: amLODIPine 10 MG (NORVASC) TAB PO SCH (20:15)
[2017-05-14] MEDS: diphenhydrAMINE 25 MG TAB (BENADRYL) PO SCH (20:15)
[2017-05-14] MEDS: ROSUVASTATIN 20 MG (CRESTOR) TABLET PO SCH (20:15)
[2017-05-14] MEDS: inSUlin DETERMIR 1 UNIT/0.01 ML (LEVEMIR) CHARGE PER UNIT SQ SCH (21:04)
[2017-05-14] MEDS ORDERED: RT-ALBUTEROL SULF 2.5 MG/3 ML PRE-MIX VIAL ONE (21:58)
[2017-05-14] MEDS ORDERED: RT-ALBUTEROL SULF 2.5 MG/3 ML PRE-MIX VIAL IH PRN (22:15)
[2017-05-15] VITALS (24 sets, daily range): BP systolic 120–190; BP diastolic 58–83
[2017-05-15 04:46] LABS: BASOPHILS % (AUTO) 0 % (0-10); EOSINOPHILS # (AUTO) 0.3 10^3/uL (0.0-0.3); EOSINOPHILS % (AUTO) 2 % (0-10); LYMPHOCYTES # (AUTO) 2.8 X 10^3 (1.0-4.0); LYMPHOCYTES % (AUTO) 18 % (12-44); MEAN CORPUSCULAR HEMOGLOBIN 27 PG (25-34); MEAN CORPUSCULAR HGB CONC 31 G/DL (32-36); MEAN CORPUSCULAR VOLUME 87 FL (80-99); MONOCYTES # (AUTO) 1.8 X 10^3 (0.0-1.0); MONOCYTES % (AUTO) 12 % (0-12); NEUTROPHILS # (AUTO) 10.9 X 10^3 (1.8-7.8); NEUTROPHILS % (AUTO) 69 % (42-75); PLATELET COUNT 263 10^3/uL (130-400); RED BLOOD COUNT 4.19 10^6/uL (4.35-5.85); RED CELL DISTRIBUTION WIDTH 18.3 % (10.0-14.5); WHITE BLOOD COUNT 15.8 10^3/uL (4.3-11.0)
[2017-05-15 05:12] LABS: ANION GAP 11 MMOL/L (5-14); BLOOD UREA NITROGEN 11 MG/DL (7-18); BUN/CREATININE RATIO 12; CALCIUM 8.2 MG/DL (8.5-10.1); CARBON DIOXIDE 22 MMOL/L (21-32); CHLORIDE 104 MMOL/L (98-107); CREATININE SERUM 0.93 MG/DL (0.60-1.30); GFR ESTIMATED > 60; GLUCOSE 205 MG/DL (70-105); MAGNESIUM 1.7 MG/DL (1.8-2.4); PHOSPHORUS 2.4 MG/DL (2.3-4.7); SODIUM 137 MMOL/L (135-145)
[2017-05-15] MEDS: KCL 20 MEQ TAB (K-DUR) PO SCH (05:25)
[2017-05-15] MEDS: POTASSIUM CL 10MEQ/50ML IVPB 50 ML IV SCH (05:25)
[2017-05-15] MEDS: MAGNESIUM 1 GM/100 ML IVPB 100 ML IV SCH ×3 (05:26→06:45)
[2017-05-15] MEDS ORDERED: PHARMACY TO DOSE IV SCH (06:45)
[2017-05-15] MEDS: inSUlin (REGULAR) HUMAN 1 UNIT/0.01 ML (CHARGE PER UNIT) SC SCH ×4 (06:49→21:06)
--- NOTE | 2017-05-15 06:49 | Pulmonary Progress Note ---
Subjective Time Seen by Provider: 08:28 Subjective/Events-last exam pt became very SOB and hypoxic last night. He was transferred to ICU. Currently requiring oxygen via a nonrebreather. CT scan shows atelectasis and pneumonia bilateral bases. WBC has actually improved. No fevers. Exam Exam Vital Signs Date Time Temp Pulse Resp B/P (MAP) Pulse Ox O2 Delivery O2 Flow Rate FiO2 05/15/17 06:00 90 18 153/74 96 Nasal Cannula 2.00 05/15/17 05:00 92 28 136/81 90 Nasal Cannula 2.00 05/15/17 04:00 89 19 143/73 92 Nasal Cannula 2.00 05/15/17 04:00 92 NIV CPAP 12.00 05/15/17 04:00 98.7 05/15/17 03:00 92 20 147/79 91 Nasal Cannula 2.00 05/15/17 02:15 91 NIV CPAP 15.00 05/15/17 02:00 95 23 145/80 91 Nasal Cannula 2.00 05/15/17 01:00 99 05/15/17 01:00 98 23 142/78 91 Nasal Cannula 2.00 05/15/17 00:00 89 Non Rebreather 15.00 05/15/17 00:00 110 22 149/81 90 Nasal Cannula 2.00 05/15/17 00:00 97.8 05/14/17 23:00 110 22 146/77 89 Nasal Cannula 2.00 05/14/17 22:03 92 Non Rebreather 15.00 05/14/17 22:00 109 21 157/76 92 Nasal Cannula 2.00 05/14/17 21:00 18 05/14/17 21:00 105 26 151/79 91 Nasal Cannula 2.00 05/14/17 20:00 108 28 188/83 90 Nasal Cannula 2.00 05/14/17 20:00 91 Non Rebreather 15.00 05/14/17 19:29 99.4 05/14/17 19:22 93 Non Rebreather 15.00 05/14/17 19:00 17 187/88 91 Nasal Cannula 2.00 05/14/17 19:00 101 05/14/17 15:55 99.0 93 17 188/79 88 Nasal Cannula 2.00 05/14/17 14:52 91 Nasal Cannula 5.00 05/14/17 12:30 98.0 80 18 152/68 94 Nasal Cannula 2.00 05/14/17 11:39 88 Nasal Cannula 3.00 05/14/17 08:35 93 Nasal Cannula 2.00 05/14/17 07:46 97.9 77 18 145/67 93 Nasal Cannula 2.00 I & O 05/15/17 07:00 Intake Total 3700 ml Output Total 1937 ml Balance 1763 ml General Appearance: No Apparent Distress HEENT: PERRL/EOMI Neck: Full Range of Motion Respiratory: Decreased Breath Sounds, Other (left chest wall tenderness) Cardiovascular: Regular Rate, Rhythm Capillary Refill: Less Than 3 Seconds Gastrointestinal: normal bowel sounds, soft, tenderness, other (wounds clean/ dry) Extremity: Normal Capillary Refill Neurologic/Psychiatric: Alert, Oriented x3 Skin: Normal Color Lymphatic: No Adenopathy Results Lab Laboratory Tests 05/13/17 10:59 05/14/17 05:45 05/15/17 04:21 Assessment/Plan Assessment/Plan S/p gastric sleeve - pain control spontaneous PTX - now resolved on imaging Dr. Knight is managing chest tube. Atelectasis with pneumonia and hypoxic respiratory failure -Change oxygen to vapor therm -CHange SVN to easy PAP -encourage IS x 10breaths Q1 hr WA -pt is on cefepime will add vanco -repan culture OLGA -He has CPAP at bedside CHF -monitor acute renal failure with metabolic acidosis -improving -monitor -IVF CXR, CT scan and labs reviewed. 60 mins spent with patient and medical staff. Clinical Quality Measures DVT/VTE Risk/Contraindication: Risk Factor Score Per Nursin RFS Level Per Nursing on Admit: 4+=Very High EVERETT SEVILLA DO May 15, 2017 06:49
[2017-05-15] MEDS ORDERED: VANCOMYCIN INJECTION 2,250 MG in NS IV 500 ML 500 ML IV NR (07:02)
[2017-05-15] MEDS: RT-ALBUTEROL/IPRATROPIUM 3 ML (DUONEB) VIAL INH SCH ×5 (07:37→21:47)
[2017-05-15] MEDS ORDERED: PIPERACILLIN SODIUM/TAZOBACTAM 4.5 GM in NS (IVPB) 100 ML IV ONE (08:30)
[2017-05-15] MEDS: PANTOPRAZOLE 40 MG (PROTONIX) TAB PO SCH (08:39)
[2017-05-15] MEDS: PREGABALIN 75 MG (LYRICA) CAP PO SCH ×2 (08:39→20:17)
[2017-05-15] MEDS: FAMOTIDINE 20 MG (PEPCID) TABLET PO SCH ×2 (08:39→20:17)
[2017-05-15] MEDS: ASPIRIN E.C. 81 MG (ECOTRIN) TAB PO SCH (08:39)
[2017-05-15] MEDS: VENlafaxine XR 75 MG (EFFEXOR XR) CAP PO SCH (08:39)
[2017-05-15] MEDS: oxyCODONE 5 MG/5 ML ORAL SOLN (roxiCODONE) 5 ML UDC PO PRN ×3 (08:39→21:48)
[2017-05-15] MEDS: LACTULOSE SYRUP 10GM/15ML (ENULOSE) 30ML UDC PO SCH ×2 (08:40→20:17)
[2017-05-15] MEDS: ONDANSETRON 4 MG (ZOFRAN) ORAL DISSOLVE TAB PO PRN ×2 (10:53→19:53)
--- NOTE | 2017-05-15 11:22 | Progress Note-Hospitalist ---
Progress Note HPI/CC on Admission CC: Medical management following a complicated gastric sleeve procedure with subsequent left pneumothorax HPI: This is a 66-year-old white male clinic patient of Lorraine Foster in [place] the presents to the ICU at [facility] transferred from [facility] from Dr. 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 Currently he is feeling well able to move around and pneumothorax chest tube has been clamped in preparation removal later today. Overall he did not require any type of ventilator support through the night and has had no issues since admitted to the ICU. Progress Notes/Assess & Plan Date Seen 05/15/17 Time Seen by Provider: 09:45 Admission Dx/Process Assessment: Complicated gastric sleeve procedure resulting in 4 hours of surgery with adhesions and left-sided pneumothorax status post chest tube placement Hypertension History of pancreatitis status post resection remotely Obstructive sleep apnea compliant with treatment DM GERD Diagonsis/Assessment & Plan Chart Review: CT chest showed no PE, likely pneumonia and bases Pt transferred to ICU last night. 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 Treadwell wants Lovenox cleared Pt has passed gas. Pt is on Lactulose RN believes that pt should not need BM meds if he moves Medical Student Review: Pt confirms stomach sleeve procedure this past Friday by Dr. Knight Pt states that movement causes him severe chest pain Pt confirms having a BM last Friday Pt is on pain meds Pt tries to move the least amount possible, but has been sat up Patient Interview: Pt and his are known to me through [facility] at [facility]. Pt states that he feels much better now that he is sitting up Physical exam stable. Lungs sound better. Pt's O2 sats were discussed. It is still low. Abx discussed Pt was informed that his BP is good and his is looking much better today Pt confirms recently starting IS Pt states that in 11/01 he had issues with his BP and was on Metoprolol. Pt states that while at [facility], crackling was heard in his lungs. Pt was informed that after surgery pt's are more prone to pneumonia. No fever, vital signs stable, pleasant, in mild pain due to left chest tube, Regular rate and rhythm, clear to auscultation bilaterally but diminished in the bases with subtle crackles, improved air expansion No edema Assessment: s/p respiratory insufficiency due to bilateral pneumonia placed on empiric abx Complicated gastric sleeve procedure resulting in 4 hours of surgery with adhesions and left-sided pneumothorax status post chest tube placement POD # 2 Hypertension History of pancreatitis status post resection remotely Obstructive sleep apnea compliant with treatment DM GERD Plan: Maintain on all home meds Pain control Chest tube removal when surgery deems criteria are met Sleep apnea treatment Ambulate Breathing treatments to expand lungs Meds to aid BMs Continue IS Continue O2 vapotherm Scribed by Josefina Hurtado under the direct supervision of Dr. Winkler. EVERETT WINKLER DO May 15, 2017 11:22
--- NOTE | 2017-05-15 11:52 | Diagnostic Imaging Report ---
INDICATION: Pneumothorax. TECHNIQUE: A single view chest was performed at 5:02 AM. CORRELATION STUDY: 05/14/2017. FINDINGS: The thoracostomy tube over the left lower chest remains in place. No significant pneumothorax. Bilateral perihilar and basilar areas of atelectasis or infiltrate do remain. There is suboptimal depth of inspiration. Likely small effusions are present. The heart size and mediastinum are enlarged but stable. IMPRESSION: 1. The left-sided chest tube remains in place. No significant pneumothorax. 2. Bilateral pulmonary infiltrates over the mid and lower lung doyle along with small effusions. Dictated by: Dictated on workstation # [id number]
[2017-05-15] MEDS: inSUlin ASPART (NovoLOG) 1 UNIT/0.01 ML (CHARGE PER UNIT) SC SCH ×3 (11:53→16:17)
[2017-05-15] MEDS: NS IV 1000 ML 1,000 ML IV SCH (11:54)
[2017-05-15 14:00] LABS: BILIRUBIN,URINE NEGATIVE (NEGATIVE); KETONES,URINE 1+ (NEGATIVE); LEUKOCYTE ESTERASE ,URINE NEGATIVE (NEGATIVE); NITRITE,URINE NEGATIVE (NEGATIVE); PH,URINE 5 (5-9); PROTEIN,URINE 3+ (NEGATIVE); UROBILINOGEN,URINE NORMAL (NORMAL)
[2017-05-15 14:15] LABS: GRANULAR CASTS,URINE 0-2 /LPF; SQUAMOUS EPITHELIAL CELL,UR 0-2 /HPF
[2017-05-15 14:16] LABS: WBC,URINE 0-2 /HPF
[2017-05-15] MEDS ORDERED: PIPERACILLIN SODIUM/TAZOBACTAM 4.5 GM in NS (IVPB) 100 ML IV SCH (15:00)
--- NOTE | 2017-05-15 17:25 | Progress Note (SOAP) ---
Subjective Date Seen by Provider: May 15, 2017 Time Seen by Provider: 17:00 Subjective/Events-last exam doing much better. no SOB with high flow humidified O2. no chest pain. no airleak and no drainage. tolerating phase 1 liquids. Objective Exam Vital Signs Date Time Temp Pulse Resp B/P (MAP) Pulse Ox O2 Delivery O2 Flow Rate FiO2 05/15/17 16:13 90 Vapotherm 22.00 80 05/15/17 16:12 99.0 Vapotherm 80.00 22.00 05/15/17 14:55 92 Vapotherm 22.00 80 05/15/17 13:00 88 05/15/17 12:05 90 Vapotherm 22.00 80 05/15/17 12:00 146/71 97 Nasal Cannula 2.00 05/15/17 11:00 91 147/74 99 Nasal Cannula 2.00 05/15/17 10:37 92 Vapotherm 22.00 80 05/15/17 10:00 98 16 120/60 05/15/17 09:00 90 19 152/69 92 Nasal Cannula 2.00 05/15/17 08:45 90 Vapotherm 12.00 50 05/15/17 08:00 Vapotherm 80.00 22.00 05/15/17 08:00 89 28 147/62 90 Nasal Cannula 2.00 05/15/17 08:00 99.0 05/15/17 07:37 92 Vapotherm 12.00 75 05/15/17 07:00 89 05/15/17 07:00 85 18 150/75 95 Nasal Cannula 2.00 05/15/17 07:00 18 05/15/17 06:00 90 18 153/74 96 Nasal Cannula 2.00 05/15/17 05:00 92 28 136/81 90 Nasal Cannula 2.00 05/15/17 04:00 89 19 143/73 92 Nasal Cannula 2.00 05/15/17 04:00 92 NIV CPAP 12.00 05/15/17 04:00 98.7 05/15/17 03:00 92 20 147/79 91 Nasal Cannula 2.00 05/15/17 02:15 91 NIV CPAP 15.00 05/15/17 02:00 95 23 145/80 91 Nasal Cannula 2.00 05/15/17 01:00 99 05/15/17 01:00 98 23 142/78 91 Nasal Cannula 2.00 05/15/17 00:00 89 Non Rebreather 15.00 05/15/17 00:00 110 22 149/81 90 Nasal Cannula 2.00 05/15/17 00:00 97.8 05/14/17 23:00 110 22 146/77 89 Nasal Cannula 2.00 05/14/17 22:03 92 Non Rebreather 15.00 05/14/17 22:00 109 21 157/76 92 Nasal Cannula 2.00 05/14/17 21:00 18 05/14/17 21:00 105 26 151/79 91 Nasal Cannula 2.00 05/14/17 20:00 108 28 188/83 90 Nasal Cannula 2.00 05/14/17 20:00 91 Non Rebreather 15.00 05/14/17 19:29 99.4 05/14/17 19:22 93 Non Rebreather 15.00 05/14/17 19:00 17 187/88 91 Nasal Cannula 2.00 05/14/17 19:00 101 I & O 05/15/17 07:00 Intake Total 3800 ml Output Total 2212 ml Balance 1588 ml Capillary Refill : Less Than 3 Seconds General Appearance: No Apparent Distress HEENT: PERRL/EOMI Neck: Full Range of Motion, Normal Inspection Respiratory: Lungs Clear, Normal Breath Sounds Cardiovascular: Regular Rate, Rhythm Gastrointestinal: normal bowel sounds, soft Extremity: Normal Capillary Refill Neurologic/Psychiatric: Alert, Oriented x3 Skin: Normal Color Lymphatic: No Adenopathy Results Lab Laboratory Tests 05/14/17 20:55: Glucometer 139H 05/15/17 04:21: White Blood Count 15.8H, Red Blood Count 4.19L, Hemoglobin 11.4L, Hematocrit 36L , Mean Corpuscular Volume 87, Mean Corpuscular Hemoglobin 27, Mean Corpuscular Hemoglobin Concent 31L, Red Cell Distribution Width 18.3H, Platelet Count 263, Mean Platelet Volume 12.0H, Neutrophils (%) (Auto) 69, Lymphocytes (%) (Auto) 18 , Monocytes (%) (Auto) 12, Eosinophils (%) (Auto) 2, Basophils (%) (Auto) 0, Neutrophils # (Auto) 10.9H, Lymphocytes # (Auto) 2.8, Monocytes # (Auto) 1.8H, Eosinophils # (Auto) 0.3, Basophils # (Auto) 0.0, Sodium Level 137, Potassium Level 4.0, Chloride Level 104, Carbon Dioxide Level 22, Anion Gap 11, Blood Urea Nitrogen 11, Creatinine 0.93, Estimat Glomerular Filtration Rate > 60, BUN/ Creatinine Ratio 12, Glucose Level 205H, Calcium Level 8.2L, Phosphorus Level 2.4, Magnesium Level 1.7L 05/15/17 07:22: Lactic Acid Level 0.94 05/15/17 09:11: Glucometer 223H 05/15/17 13:54: Urine Color YELLOW, Urine Clarity CLEAR, Urine pH 5, Urine Specific [place] 1.015L, Urine Protein 3+H, Urine Glucose (UA) 3+H, Urine Ketones 1+H, Urine Nitrite NEGATIVE, Urine Bilirubin NEGATIVE, Urine Urobilinogen NORMAL, Urine Leukocyte Esterase NEGATIVE, Urine RBC (Auto) 3+H, Urine RBC 5-10H, Urine WBC 0- 2, Urine Squamous Epithelial Cells 0-2, Urine Crystals NONE, Urine Bacteria TRACE, Urine Casts PRESENT, Urine Granular Casts 0-2H, Urine Mucus NEGATIVE, Urine Culture Indicated NO 05/15/17 16:10: Glucometer 238H Microbiology 05/12/17 MRSA Screen - Final, Complete MRSA not isolated Assessment/Plan Assessment/Plan Assess & Plan/Chief Complaint s/p laparoscopic ERICKA and gastric sleeve resection with spontaneous PTX. no airleak or pleuravac drainage. will leave CT in on air leak and monitor for drainage. start phase 1 clear liquid diet. developed increased oxygen demand and decreased saturation. improved with high flow humidified o2 will increase IS, ambulation, and breathing treatments. CT chest normal, no PE. consolidation bases consistent with atelectasis vs. early pneumonia. continue phase 1 liquids for 2 weeks. will remove chest tube in am. Clinical Quality Measures DVT/VTE Risk/Contraindication: Risk Factor Score Per Nursin RFS Level Per Nursing on Admit: 4+=Very High JOSEPHINE NOBLE MD May 15, 2017 5:25 pm
[2017-05-15] MEDS: ENOXAPARIN 30 MG/0.3 ML (LOVENOX) SYR SC SCH (18:08)
[2017-05-15] MEDS: PIPERACILLIN SODIUM/TAZOBACTAM 4.5 GM in NS (IVPB) 100 ML IV SCH (18:12)
[2017-05-15] MEDS: LACTOBACILLUS Acidoph/Bulgar (LACTINEX/FLORANEX) TAB PO SCH (20:17)
[2017-05-15] MEDS: amLODIPine 10 MG (NORVASC) TAB PO SCH (20:17)
[2017-05-15] MEDS: ROSUVASTATIN 20 MG (CRESTOR) TABLET PO SCH (20:17)
[2017-05-15] MEDS: diphenhydrAMINE 25 MG TAB (BENADRYL) PO SCH (20:17)
[2017-05-15] MEDS: fentaNYL INJECTION 100 MCG/2 ML AMP IVP PRN (20:17)
[2017-05-15] MEDS: inSUlin DETERMIR 1 UNIT/0.01 ML (LEVEMIR) CHARGE PER UNIT SQ SCH (21:05)
[2017-05-15] MEDS ORDERED: ONDANSETRON 4 MG/2 ML (SDV) Z0FRAN IV PRN (23:00)
[2017-05-16] VITALS (24 sets, daily range): BP systolic 107–184; BP diastolic 31–94
[2017-05-16] MEDS: VANCOMYCIN 1500 MG/NS 500 ML IVPB IV SCH ×4 (00:44→13:12)
[2017-05-16] MEDS: RT-ALBUTEROL/IPRATROPIUM 3 ML (DUONEB) VIAL INH SCH ×6 (02:00→21:47)
[2017-05-16] MEDS: PIPERACILLIN SODIUM/TAZOBACTAM 4.5 GM in NS (IVPB) 100 ML IV SCH ×3 (02:53→16:47)
[2017-05-16] MEDS: oxyCODONE 5 MG/5 ML ORAL SOLN (roxiCODONE) 5 ML UDC PO PRN ×2 (03:56→11:36)
[2017-05-16 04:34] LABS: BASOPHILS % (AUTO) 0 % (0-10); EOSINOPHILS # (AUTO) 0.7 10^3/uL (0.0-0.3); EOSINOPHILS % (AUTO) 5 % (0-10); LYMPHOCYTES # (AUTO) 1.7 X 10^3 (1.0-4.0); LYMPHOCYTES % (AUTO) 12 % (12-44); MEAN CORPUSCULAR HEMOGLOBIN 27 PG (25-34); MEAN CORPUSCULAR HGB CONC 31 G/DL (32-36); MEAN CORPUSCULAR VOLUME 87 FL (80-99); MEAN PLATELET VOLUME 11.7 FL (7.4-10.4); MONOCYTES # (AUTO) 1.4 X 10^3 (0.0-1.0); MONOCYTES % (AUTO) 10 % (0-12); NEUTROPHILS # (AUTO) 10.5 X 10^3 (1.8-7.8); NEUTROPHILS % (AUTO) 74 % (42-75); PLATELET COUNT 248 10^3/uL (130-400); RED BLOOD COUNT 4.23 10^6/uL (4.35-5.85); RED CELL DISTRIBUTION WIDTH 17.8 % (10.0-14.5); WHITE BLOOD COUNT 14.3 10^3/uL (4.3-11.0)
[2017-05-16 04:50] LABS: MAGNESIUM 2.1 MG/DL (1.8-2.4); PHOSPHORUS 2.5 MG/DL (2.3-4.7)
[2017-05-16 04:54] LABS: ALANINE AMINOTRANSFERASE 14 U/L (0-55); ANION GAP 10 MMOL/L (5-14); ASPARTATE AMINO TRANSFERASE 17 U/L (5-34); BILIRUBIN,TOTAL 0.5 MG/DL (0.1-1.0); BLOOD UREA NITROGEN 9 MG/DL (7-18); BUN/CREATININE RATIO 9; CALCIUM 8.5 MG/DL (8.5-10.1); CARBON DIOXIDE 24 MMOL/L (21-32); CHLORIDE 101 MMOL/L (98-107); CREATININE SERUM 1.05 MG/DL (0.60-1.30); GFR ESTIMATED > 60; GLUCOSE 209 MG/DL (70-105); POTASSIUM 3.9 MMOL/L (3.6-5.0); SODIUM 135 MMOL/L (135-145); TOTAL PROTEIN 6.5 GM/DL (6.4-8.2)
[2017-05-16] MEDS: POTASSIUM CL 10MEQ/50ML IVPB 50 ML IV SCH (05:47)
[2017-05-16] MEDS: KCL 20 MEQ TAB (K-DUR) PO SCH (05:48)
[2017-05-16] MEDS: MAGNESIUM 1 GM/100 ML IVPB 100 ML IV SCH (05:48)
[2017-05-16] MEDS: inSUlin (REGULAR) HUMAN 1 UNIT/0.01 ML (CHARGE PER UNIT) SC SCH ×4 (05:48→20:26)
[2017-05-16] MEDS: ENOXAPARIN 30 MG/0.3 ML (LOVENOX) SYR SC SCH ×2 (05:52→16:47)
--- NOTE | 2017-05-16 07:55 | Pulmonary Progress Note ---
Subjective Time Seen by Provider: 07:54 Subjective/Events-last exam Pt is still requiring a lot of oxygen Exam Exam Vital Signs Date Time Temp Pulse Resp B/P (MAP) Pulse Ox O2 Delivery O2 Flow Rate FiO2 05/16/17 06:58 92 Vapotherm 22.00 90 05/16/17 06:00 84 22 107/31 95 Vapotherm 80.00 22.00 05/16/17 05:00 79 20 143/58 94 Vapotherm 80.00 22.00 05/16/17 04:00 94 Vapotherm 22.00 80 05/16/17 04:00 97.9 05/16/17 04:00 80 17 126/64 93 Vapotherm 80.00 22.00 05/16/17 03:00 76 16 148/71 94 Vapotherm 80.00 22.00 05/16/17 02:00 78 18 184/85 95 Vapotherm 80.00 22.00 05/16/17 01:00 76 14 168/84 94 Vapotherm 80.00 22.00 05/16/17 01:00 77 05/16/17 00:00 84 17 162/77 94 Vapotherm 80.00 22.00 05/16/17 00:00 97.5 05/16/17 00:00 94 Vapotherm 22.00 80 05/15/17 23:00 85 16 161/75 94 Vapotherm 80.00 22.00 05/15/17 22:00 84 18 174/83 94 Vapotherm 80.00 22.00 05/15/17 21:49 92 Vapotherm 22.00 80 05/15/17 21:00 89 190/77 90 Vapotherm 80.00 22.00 05/15/17 20:00 94 Vapotherm 22.00 80 05/15/17 20:00 97.3 05/15/17 20:00 90 145/58 91 Vapotherm 80.00 22.00 05/15/17 19:00 86 14 143/72 93 Vapotherm 80.00 22.00 05/15/17 19:00 91 05/15/17 18:50 91 Vapotherm 22.00 80 05/15/17 18:00 98 126/63 91 Vapotherm 80.00 22.00 05/15/17 17:00 95 28 154/75 Vapotherm 80.00 22.00 05/15/17 16:13 90 Vapotherm 22.00 80 05/15/17 16:12 99.0 Vapotherm 80.00 22.00 05/15/17 16:00 88 20 132/60 87 Nasal Cannula 2.00 05/15/17 15:00 84 7 148/67 94 Nasal Cannula 2.00 05/15/17 14:55 92 Vapotherm 22.00 80 05/15/17 14:00 83 19 150/70 90 Nasal Cannula 2.00 05/15/17 13:00 88 05/15/17 13:00 148/73 93 Nasal Cannula 2.00 05/15/17 12:05 90 Vapotherm 22.00 80 05/15/17 12:00 146/71 97 Nasal Cannula 2.00 05/15/17 11:00 91 147/74 99 Nasal Cannula 2.00 05/15/17 10:37 92 Vapotherm 22.00 80 05/15/17 10:00 98 16 120/60 05/15/17 09:00 90 19 152/69 92 Nasal Cannula 2.00 05/15/17 08:45 90 Vapotherm 12.00 50 05/15/17 08:00 Vapotherm 80.00 22.00 05/15/17 08:00 89 28 147/62 90 Nasal Cannula 2.00 05/15/17 08:00 99.0 I & O 05/16/17 07:00 Intake Total 3262.5 ml Output Total 2324 ml Balance 938.5 ml General Appearance: No Apparent Distress HEENT: PERRL/EOMI Neck: Full Range of Motion, Normal Inspection Respiratory: Lungs Clear, Normal Breath Sounds Cardiovascular: Regular Rate, Rhythm Capillary Refill: Less Than 3 Seconds Gastrointestinal: normal bowel sounds, soft Extremity: Normal Capillary Refill Neurologic/Psychiatric: Alert, Oriented x3 Skin: Normal Color Lymphatic: No Adenopathy Results Lab Laboratory Tests 05/15/17 04:21 05/16/17 04:20 Assessment/Plan Assessment/Plan S/p gastric sleeve - pain control spontaneous PTX - now resolved on imaging Dr. Knight is managing chest tube. Atelectasis with pneumonia and hypoxic respiratory failure -oxygen to vapor therm -SVN to easy PAP -encourage IS x 10breaths Q1 hr WA -pt is on cefepime vanco -repan culture pending OLGA -He has CPAP at bedside CHF -monitor acute renal failure with metabolic acidosis -improving -monitor -IVF CXR, CT scan and labs reviewed. 233 Clinical Quality Measures DVT/VTE Risk/Contraindication: Risk Factor Score Per Nursin RFS Level Per Nursing on Admit: 4+=Very High EVERETT SEVILLA DO May 16, 2017 07:54
[2017-05-16] MEDS: inSUlin ASPART (NovoLOG) 1 UNIT/0.01 ML (CHARGE PER UNIT) SC SCH ×4 (09:34→16:46)
[2017-05-16] MEDS: PREGABALIN 75 MG (LYRICA) CAP PO SCH ×2 (09:34→20:14)
[2017-05-16] MEDS: VENlafaxine XR 75 MG (EFFEXOR XR) CAP PO SCH (09:34)
[2017-05-16] MEDS: LACTOBACILLUS Acidoph/Bulgar (LACTINEX/FLORANEX) TAB PO SCH ×2 (09:35→20:14)
[2017-05-16] MEDS: ASPIRIN E.C. 81 MG (ECOTRIN) TAB PO SCH (09:35)
[2017-05-16] MEDS: LACTULOSE SYRUP 10GM/15ML (ENULOSE) 30ML UDC PO SCH ×2 (09:35→20:14)
[2017-05-16] MEDS: FAMOTIDINE 20 MG (PEPCID) TABLET PO SCH ×2 (09:35→20:14)
[2017-05-16] MEDS: PANTOPRAZOLE 40 MG (PROTONIX) TAB PO SCH (09:35)
[2017-05-16] MEDS: BISACODYL 10 MG SUPP (DULCOLAX) PR ONE ×2 (09:36→18:19)
[2017-05-16] MEDS: SENNA W/DOCUSATE (SENOKOT S) TABLET PO ONE ×2 (09:36→18:19)
--- NOTE | 2017-05-16 10:10 | Diagnostic Imaging Report ---
Portable upright radiograph of the chest. INDICATION: Left pneumothorax. FINDINGS: There is a left chest tube in place. No pneumothorax. When compared to 04/25/17, there is slight worsening in bibasilar opacities probably related to atelectasis. There is bilateral low lung volumes. The heart size appears slightly enlarged. The heart size is mildly prominent. Right PICC line is unchanged. IMPRESSION: Increasing bibasilar opacities, favored to be atelectasis rather than infiltrate. Correlate clinically. Low lung volumes. Dictated by: Dictated on workstation # [id number]
--- NOTE | 2017-05-16 11:14 | Progress Note-Hospitalist ---
Progress Note HPI/CC on Admission CC: Medical management following a complicated gastric sleeve procedure with subsequent left pneumothorax HPI: This is a 66-year-old white male clinic patient of Lorraine Foster in [place] the presents to the ICU at [facility] transferred from [facility] from Dr. 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 Currently he is feeling well able to move around and pneumothorax chest tube has been clamped in preparation removal later today. Overall he did not require any type of ventilator support through the night and has had no issues since admitted to the ICU. Progress Notes/Assess & Plan Date Seen 05/16/17 Time Seen by Provider: 10:00 Admission Dx/Process Assessment: Complicated gastric sleeve procedure resulting in 4 hours of surgery with adhesions and left-sided pneumothorax status post chest tube placement Hypertension History of pancreatitis status post resection remotely Obstructive sleep apnea compliant with treatment DM GERD Diagonsis/Assessment & Plan Chart Review: WBC Hgb 11.5 CMP normal Patient Interview: Pt is in good spirits BMs discussed. Pt does not seem pleased that I ordered an enema. I informed him that I will order a suppository first and an enema prn. Physical exam stable. Pt states that he feels okay otherwise, but the longer he sits, he states that he feels worse. No fever, vital signs stable, pleasant, in mild pain due to left chest tube, Regular rate and rhythm, clear to auscultation bilaterally but diminished in the bases with subtle crackles, improved air expansion No edema Assessment: s/p respiratory insufficiency due to bilateral pneumonia placed on empiric abx Complicated gastric sleeve procedure resulting in 4 hours of surgery with adhesions and left-sided pneumothorax status post chest tube placement POD # 3 Hypertension History of pancreatitis status post resection remotely Obstructive sleep apnea compliant with treatment DM GERD Plan: Maintain on all home meds Pain control Chest tube removal when surgery deems criteria are met Sleep apnea treatment Ambulate Breathing treatments to expand lungs Continue IS Continue O2 vapotherm Suppository, then soap suds enema if needed Senna Scribed by Josefina Hurtado under the direct supervision of Dr. Winkler. EVERETT WINKLER DO May 16, 2017 11:14
[2017-05-16] MEDS ORDERED: TROUGH ORDER-PHARMACY XX NR (12:00)
--- NOTE | 2017-05-16 13:38 | Physical Therapy Evaluation ---
PT Evaluation-General Medical Diagnosis Admission Date May 12, 2017 at 18:21 Medical Diagnosis: pneumothorax Onset Date: May 12, 2017 Therapy Diagnosis Therapy Diagnosis: impaired mobility, endurance, pain Height/Weight Height (Feet): 5 Height (Inches): 11.00 Weight (Pounds): 247 Weight (Ounces): 3.0 Precautions Precautions/Isolations: Fall Prevention, Standard Precautions Referral Physician: Roldan Treadwell DO Reason for Referral: Evaluation/Treatment Medical History Pertinent Medical History: HTN Additional Medical History liver cirrhosis, CHF, former smoker, sleep apnea, pancreatitis, chronic back pain, ALUTIIQ, surg (abdominal, back, left great toe amp) Current History s/p extensive ERICKA and laparoscopic gastric sleeve resection Reviewed History: Yes Social History Home: Single Level Current Living Status: Spouse Entry Into Home: Stairs With Railing PT Steps Into Home: 4 Prior/Core FIM Prior Level of Function Functional [place] Measure 0=Not Assessed/NA 4=Minimal Assistance 1=Total Assistance 5=Supervision or Setup 2=Maximal Assistance 6=Modified [place] 3=Moderate Assistance 7=Complete [place] Bed Mobility: 7 Transfers (B,C,W/C) (FIM): 7 Gait: 7 PT Evaluation-Current Subjective Patient in recliner pre tx, agrees to PT, has pain of 10/10 where his chest tube goes in on the left side. Patient has a vapotherm machine and will not be able to ambulate at this time. Pt/Family Goals "to go home" Objective Patient Orientation: Person, Place, Situation Attachments: Chest Tube, Oxygen, IV ROM/Strength ROM Lower Extremities WNL Strenght Lower Extremities 4+-5/5 bilateral lower extremities Neuromuscular (Tone, Coordination, Reflexes) WNL Sensory Vision: Functional Hearing: Impaired Sensation Right Lower Extremit: Impaired Sensation Left Lower Extremity: Impaired Sensation Lower Extremities Patient has no light touch sensation in his feet. Transfers Functional [place] Measure 0=Not Assessed/NA 4=Minimal Assistance 1=Total Assistance 5=Supervision or Setup 2=Maximal Assistance 6=Modified [place] 3=Moderate Assistance 7=Complete [place] Transfers (B, C, W/C) (FIM): 4 Sit to/from Stand: 4 CGA for sit to stand Balance Sitting Static: Normal Sitting Dynamic: Normal Standing Static: Fair Standing Dynamic: Fair Treatment Patient was able to stand for about 10 min and perform standing exercises HR x15 , marching x15, he also performed LAQ x15 each side and AP x20 Assessment/Needs Patient has impaired mobility and endurance post pneumothorax Rehab Potential: Fair PT Broom Builder Goals Usp Goals PT Broom Builder Goals Time Frame: May 23, 2017 Transfers (B,C,W/C) (FIM): 5 Gait (FIM): 2 Distance: 50' Gait Level of Assist: 5 Gait Assistive Device: FWW PT Plan Problem List Problem List: Activity Tolerance, Functional Strength, Safety, Balance, Gait, Transfer, Bed Mobility, ROM Treatment/Plan Treatment Plan: Continue Plan of Care Treatment Plan: Bed Mobility, Education, Functional Activity Elie, Functional Strength, Gait, Safety, Therapeutic Exercise, Transfers Treatment Duration: May 23, 2017 # of days/week 5-6 Visits Per Week: 5-6 Minutes/Day (M-F): 15-30 Minutes/Day (Sat/William): 15-30 Pt/Family Agrees w/Plan: Yes Safety Risks/Education Patient Education: Transfer Techniques, Correct Positioning, Safety Issues Teaching Recipient: Patient Teaching Methods: Demonstration, Discussion Response to Teaching: Reinforcement Needed Discharge Recommendations Plan Patient will perform bed mobility and transfer training, balance and endurance training, functional strengthening, stair training, gait training, and education , to improve functional mobility and independence at home. Therapy D/C Recommendations: Home w/ Family Support Time/GCodes Time In: 1315 Time Out: 1330 Total Billed Treatment Time: 15 Total Billed Treatment 1 visit EVFerdi 15' DAVION BETTENCOURT PT May 16, 2017 13:38
--- NOTE | 2017-05-16 15:05 | Progress Note (SOAP) ---
Subjective Date Seen by Provider: May 16, 2017 Time Seen by Provider: 14:00 Subjective/Events-last exam doing better. no SOB. tolerating phase I clear liquids. ambulating well. pain in chest and abdomen resolving. Objective Exam Vital Signs Date Time Temp Pulse Resp B/P (MAP) Pulse Ox O2 Delivery O2 Flow Rate FiO2 05/16/17 14:36 80 14 160/75 93 Vapotherm 85.00 05/16/17 13:53 96 Vapotherm 19.00 85 05/16/17 13:00 86 05/16/17 12:00 97.8 81 16 126/94 97 Vapotherm 90.00 05/16/17 11:19 94 Vapotherm 22.00 90 05/16/17 10:01 94 Vapotherm 22.00 90 05/16/17 08:00 94 Vapotherm 22.00 90 05/16/17 08:00 96.6 80 11 126/54 93 Vapotherm 90.00 05/16/17 07:00 84 05/16/17 06:58 92 Vapotherm 22.00 90 05/16/17 06:00 84 22 107/31 95 Vapotherm 80.00 22.00 05/16/17 05:00 79 20 143/58 94 Vapotherm 80.00 22.00 05/16/17 04:00 94 Vapotherm 22.00 80 05/16/17 04:00 97.9 05/16/17 04:00 80 17 126/64 93 Vapotherm 80.00 22.00 05/16/17 03:00 76 16 148/71 94 Vapotherm 80.00 22.00 05/16/17 02:00 78 18 184/85 95 Vapotherm 80.00 22.00 05/16/17 01:00 76 14 168/84 94 Vapotherm 80.00 22.00 05/16/17 01:00 77 05/16/17 00:00 84 17 162/77 94 Vapotherm 80.00 22.00 05/16/17 00:00 97.5 05/16/17 00:00 94 Vapotherm 22.00 80 05/15/17 23:00 85 16 161/75 94 Vapotherm 80.00 22.00 05/15/17 22:00 84 18 174/83 94 Vapotherm 80.00 22.00 05/15/17 21:49 92 Vapotherm 22.00 80 05/15/17 21:00 89 190/77 90 Vapotherm 80.00 22.00 05/15/17 20:00 94 Vapotherm 22.00 80 05/15/17 20:00 97.3 05/15/17 20:00 90 145/58 91 Vapotherm 80.00 22.00 05/15/17 19:00 86 14 143/72 93 Vapotherm 80.00 22.00 05/15/17 19:00 91 05/15/17 18:50 91 Vapotherm 22.00 80 05/15/17 18:00 98 126/63 91 Vapotherm 80.00 22.00 05/15/17 17:00 95 28 154/75 Vapotherm 80.00 22.00 05/15/17 16:13 90 Vapotherm 22.00 80 05/15/17 16:12 99.0 Vapotherm 80.00 22.00 05/15/17 16:00 88 20 132/60 87 Nasal Cannula 2.00 I & O 05/16/17 07:00 Intake Total 3262.5 ml Output Total 2324 ml Balance 938.5 ml Capillary Refill : Less Than 3 Seconds General Appearance: No Apparent Distress HEENT: PERRL/EOMI Neck: Full Range of Motion Respiratory: Chest Non Tender, Normal Breath Sounds Cardiovascular: Regular Rate, Rhythm Gastrointestinal: normal bowel sounds, soft, other (wounds clean/dry) Extremity: Normal Capillary Refill Neurologic/Psychiatric: Alert, Oriented x3 Skin: Normal Color Lymphatic: No Adenopathy Results Lab Laboratory Tests 05/15/17 16:10: Glucometer 238H 05/15/17 20:57: Glucometer 373H 05/16/17 04:20: White Blood Count 14.3H, Red Blood Count 4.23L, Hemoglobin 11.5L, Hematocrit 37L , Mean Corpuscular Volume 87, Mean Corpuscular Hemoglobin 27, Mean Corpuscular Hemoglobin Concent 31L, Red Cell Distribution Width 17.8H, Platelet Count 248, Mean Platelet Volume 11.7H, Neutrophils (%) (Auto) 74, Lymphocytes (%) (Auto) 12 , Monocytes (%) (Auto) 10, Eosinophils (%) (Auto) 5, Basophils (%) (Auto) 0, Neutrophils # (Auto) 10.5H, Lymphocytes # (Auto) 1.7, Monocytes # (Auto) 1.4H, Eosinophils # (Auto) 0.7H, Basophils # (Auto) 0.0, Sodium Level 135, Potassium Level 3.9, Chloride Level 101, Carbon Dioxide Level 24, Anion Gap 10, Blood Urea Nitrogen 9, Creatinine 1.05, Estimat Glomerular Filtration Rate > 60, BUN/ Creatinine Ratio 9, Glucose Level 209H, Calcium Level 8.5, Phosphorus Level 2.5 , Magnesium Level 2.1, Total Bilirubin 0.5, Aspartate Amino Transf (AST/SGOT) 17 , Alanine Aminotransferase (ALT/SGPT) 14, Alkaline Phosphatase 84, Total Protein 6.5, Albumin 3.0L 05/16/17 10:58: Glucometer 232H 05/16/17 11:30: Vancomycin Level Trough 17.8 Microbiology 05/15/17 Blood Culture - Preliminary, Resulted No growth 05/12/17 MRSA Screen - Final, Complete MRSA not isolated Assessment/Plan Assessment/Plan Assess & Plan/Chief Complaint s/p laparoscopic ERICKA and gastric sleeve resection with spontaneous PTX. no airleak or pleuravac drainage. developed increased oxygen demand and decreased saturation. improved with high flow humidified o2 patient has underlying pulmonary issues and requires oxygen at night. will increase IS, ambulation, and breathing treatments. CT chest normal, no PE. consolidation bases consistent with atelectasis vs. early pneumonia. continue phase 1 liquids for 2 weeks. CXR still consistent with atelectasis. will monitor for now. home when respiratory status stable. Clinical Quality Measures DVT/VTE Risk/Contraindication: Risk Factor Score Per Nursin RFS Level Per Nursing on Admit: 4+=Very High JOSEPHINE NOBLE MD May 16, 2017 3:05 pm
--- NOTE | 2017-05-16 15:35 | Diagnostic Imaging Report ---
INDICATION: Left chest tube removal. TECHNIQUE: Frontal chest obtained at 3:12 p.m. compared to same day at 5:12 a.m. FINDINGS: Left-sided chest tube has been removed. There is no pneumothorax. Right-sided PICC line is unchanged. There is very poor inspiration. There is some bibasilar atelectasis. There is no significant pleural fluid. IMPRESSION: Poor inspiration with bibasilar atelectasis. Interval removal of left-sided chest tube. No pneumothorax seen. Dictated by: Dictated on workstation # [id number]
[2017-05-16] MEDS ORDERED: TROUGH ORDER-PHARMACY XX ONE (19:00)
[2017-05-16] MEDS: diphenhydrAMINE 25 MG TAB (BENADRYL) PO SCH (20:14)
[2017-05-16] MEDS: amLODIPine 10 MG (NORVASC) TAB PO SCH (20:14)
[2017-05-16] MEDS: ROSUVASTATIN 20 MG (CRESTOR) TABLET PO SCH (20:14)
[2017-05-16] MEDS: inSUlin DETERMIR 1 UNIT/0.01 ML (LEVEMIR) CHARGE PER UNIT SQ SCH (20:26)
[2017-05-17] VITALS (18 sets, daily range): BP systolic 92–152; BP diastolic 52–82
[2017-05-17] MEDS: VANCOMYCIN 1500 MG/NS 500 ML IVPB IV SCH ×2 (00:22)
[2017-05-17] MEDS: RT-ALBUTEROL/IPRATROPIUM 3 ML (DUONEB) VIAL INH SCH ×6 (02:22→22:10)
[2017-05-17] MEDS: PIPERACILLIN SODIUM/TAZOBACTAM 4.5 GM in NS (IVPB) 100 ML IV SCH ×3 (02:39→17:47)
[2017-05-17 05:24] LABS: BASOPHILS % (AUTO) 0 % (0-10); EOSINOPHILS # (AUTO) 0.9 10^3/uL (0.0-0.3); EOSINOPHILS % (AUTO) 6 % (0-10); LYMPHOCYTES # (AUTO) 1.6 X 10^3 (1.0-4.0); LYMPHOCYTES % (AUTO) 11 % (12-44); MEAN CORPUSCULAR HEMOGLOBIN 27 PG (25-34); MEAN CORPUSCULAR HGB CONC 31 G/DL (32-36); MEAN CORPUSCULAR VOLUME 86 FL (80-99); MEAN PLATELET VOLUME 12.1 FL (7.4-10.4); MONOCYTES # (AUTO) 1.5 X 10^3 (0.0-1.0); MONOCYTES % (AUTO) 10 % (0-12); NEUTROPHILS # (AUTO) 10.6 X 10^3 (1.8-7.8); NEUTROPHILS % (AUTO) 73 % (42-75); PLATELET COUNT 277 10^3/uL (130-400); RED BLOOD COUNT 4.34 10^6/uL (4.35-5.85); RED CELL DISTRIBUTION WIDTH 17.5 % (10.0-14.5); WHITE BLOOD COUNT 14.6 10^3/uL (4.3-11.0)
[2017-05-17 05:48] LABS: ANION GAP 15 MMOL/L (5-14); BLOOD UREA NITROGEN 6 MG/DL (7-18); BUN/CREATININE RATIO 5; CALCIUM 8.6 MG/DL (8.5-10.1); CARBON DIOXIDE 21 MMOL/L (21-32); CHLORIDE 103 MMOL/L (98-107); CREATININE SERUM 1.12 MG/DL (0.60-1.30); GFR ESTIMATED > 60; MAGNESIUM 1.9 MG/DL (1.8-2.4); PHOSPHORUS 2.3 MG/DL (2.3-4.7); POTASSIUM 3.4 MMOL/L (3.6-5.0); SODIUM 139 MMOL/L (135-145)
[2017-05-17 05:51] LABS: GLUCOSE 57 MG/DL (70-105)
[2017-05-17] MEDS: POTASSIUM CL 10MEQ/50ML IVPB 50 ML IV SCH ×3 (05:58→07:10)
[2017-05-17] MEDS: inSUlin (REGULAR) HUMAN 1 UNIT/0.01 ML (CHARGE PER UNIT) SC SCH ×4 (05:58→21:06)
[2017-05-17] MEDS: MAGNESIUM 1 GM/100 ML IVPB 100 ML IV SCH (05:58)
[2017-05-17] MEDS: KCL 20 MEQ TAB (K-DUR) PO SCH (05:58)
[2017-05-17] MEDS: inSUlin ASPART (NovoLOG) 1 UNIT/0.01 ML (CHARGE PER UNIT) SC SCH ×3 (05:59→16:16)
[2017-05-17] MEDS: ENOXAPARIN 30 MG/0.3 ML (LOVENOX) SYR SC SCH ×2 (06:06→17:47)
[2017-05-17] MEDS: LACTULOSE SYRUP 10GM/15ML (ENULOSE) 30ML UDC PO SCH ×2 (08:08→20:25)
[2017-05-17] MEDS: FAMOTIDINE 20 MG (PEPCID) TABLET PO SCH ×2 (08:16→20:25)
[2017-05-17] MEDS: ASPIRIN E.C. 81 MG (ECOTRIN) TAB PO SCH (08:16)
[2017-05-17] MEDS: PREGABALIN 75 MG (LYRICA) CAP PO SCH ×2 (08:16→20:25)
[2017-05-17] MEDS: LACTOBACILLUS Acidoph/Bulgar (LACTINEX/FLORANEX) TAB PO SCH ×2 (08:16→20:25)
[2017-05-17] MEDS: PANTOPRAZOLE 40 MG (PROTONIX) TAB PO SCH (08:16)
[2017-05-17] MEDS: VENlafaxine XR 75 MG (EFFEXOR XR) CAP PO SCH (08:17)
--- NOTE | 2017-05-17 08:34 | Diagnostic Imaging Report ---
INDICATION: Pneumothorax. Comparison with 05/16/2017 post chest tube removal. FINDINGS: There continues to be some bibasilar atelectasis. Chronic elevation of the right hemidiaphragm again noted. No evidence of recurring pneumothorax. Heart remains mildly enlarged. No evidence of pulmonary edema. Right PICC line unchanged. IMPRESSION: Stable portable chest exam with bibasilar atelectasis. Dictated by: Dictated on workstation # [id number]
--- NOTE | 2017-05-17 10:54 | Progress Note ---
Subjective Time Seen by Provider: 10:32 Subjective/Events-last exam Pt seen and examined, his main complaint is of pain at lower lungs. "Can't take deep breath". Tolerating clears. CXR read by Radiologist as bibasilar atelectasis. No BM or flatus yet. Pt still requiring 19 on Vapotherm, down from 22. Review of Systems General: No Chills, No Night Sweats, Fatigue Cardiovascular: No: Chest Pain, Palpitations Gastrointestinal: Abdominal Pain, No: Nausea, Vomiting Objective Exam Vital Signs Date Time Temp Pulse Resp B/P (MAP) Pulse Ox O2 Delivery O2 Flow Rate FiO2 05/17/17 10:28 95 Vapotherm 90 05/17/17 08:00 93 Vapotherm 19.00 90 05/17/17 07:00 96 05/17/17 06:37 95 NIV CPAP 19.00 90 05/17/17 06:00 90 17 144/70 96 NIV CPAP 12.00 05/17/17 05:00 76 12 131/82 98 NIV CPAP 12.00 05/17/17 04:00 79 20 132/61 95 NIV CPAP 12.00 05/17/17 04:00 91 NIV CPAP 12.00 05/17/17 03:00 80 18 122/66 94 NIV CPAP 12.00 05/17/17 02:22 92 NIV CPAP 12.00 05/17/17 02:00 95 13 124/63 88 NIV CPAP 12.00 05/17/17 01:00 79 05/17/17 01:00 77 12 109/54 94 NIV CPAP 12.00 05/17/17 00:00 86 17 112/58 92 NIV CPAP 12.00 05/17/17 00:00 97.1 05/17/17 00:00 91 NIV CPAP 12.00 05/16/17 23:00 83 11 113/55 97 NIV CPAP 12.00 05/16/17 22:15 NIV CPAP 12.00 05/16/17 22:00 112 26 134/66 89 Vapotherm 90.00 19.00 05/16/17 21:47 95 Vapotherm 19.00 90 05/16/17 21:00 88 23 137/74 85 Vapotherm 90.00 19.00 05/16/17 20:00 98.0 05/16/17 20:00 92 17 136/69 95 Vapotherm 90.00 19.00 05/16/17 20:00 96 Vapotherm 19.00 90 05/16/17 19:00 96 12 134/67 94 Vapotherm 90.00 19.00 05/16/17 19:00 96 05/16/17 18:31 93 Vapotherm 19.00 90 05/16/17 18:00 87 16 148/72 93 Vapotherm 90.00 19.00 05/16/17 17:00 85 23 139/78 91 Vapotherm 90.00 19.00 05/16/17 16:00 97.7 76 15 126/68 92 Vapotherm 90.00 19.00 05/16/17 15:17 94 Vapotherm 22.00 90 05/16/17 15:00 78 18 144/63 Vapotherm 85.00 05/16/17 14:36 80 14 160/75 93 Vapotherm 85.00 05/16/17 13:53 96 Vapotherm 19.00 85 05/16/17 13:00 74 14 112/61 Vapotherm 90.00 05/16/17 13:00 86 05/16/17 12:00 97.8 81 16 126/94 97 Vapotherm 90.00 05/16/17 11:19 94 Vapotherm 22.00 90 05/16/17 11:00 88 17 171/84 89 Vapotherm 90.00 I & O 05/17/17 07:00 Intake Total 2505 ml Output Total 2800 ml Balance -295 ml Capillary Refill : Less Than 3 Seconds General Appearance: No Apparent Distress, WD/WN HEENT: PERRL/EOMI Respiratory: Crackles (at base), Decreased Breath Sounds (at the base), Other ( chest is tender at lower ribs, also at chest tube site) Cardiovascular: Regular Rate, Rhythm, No Murmur Gastrointestinal: normal bowel sounds, soft, other (incisions c/d/i) Extremity: Normal Capillary Refill Neurologic/Psychiatric: Alert, Oriented x3 Skin: Normal Color Lymphatic: No Adenopathy Results Lab Laboratory Tests 05/16/17 10:58: Glucometer 232H 05/16/17 11:30: Vancomycin Level Trough 17.8 05/16/17 16:15: Glucometer 154H 05/16/17 20:19: Glucometer 218H 05/17/17 05:14: White Blood Count 14.6H, Red Blood Count 4.34L, Hemoglobin 11.6L, Hematocrit 38L , Mean Corpuscular Volume 86, Mean Corpuscular Hemoglobin 27, Mean Corpuscular Hemoglobin Concent 31L, Red Cell Distribution Width 17.5H, Platelet Count 277, Mean Platelet Volume 12.1H, Neutrophils (%) (Auto) 73, Lymphocytes (%) (Auto) 11L, Monocytes (%) (Auto) 10, Eosinophils (%) (Auto) 6, Basophils (%) (Auto) 0, Neutrophils # (Auto) 10.6H, Lymphocytes # (Auto) 1.6, Monocytes # (Auto) 1.5H, Eosinophils # (Auto) 0.9H, Basophils # (Auto) 0.0, Sodium Level 139, Potassium Level 3.4L, Chloride Level 103, Carbon Dioxide Level 21, Anion Gap 15H, Blood Urea Nitrogen 6L, Creatinine 1.12, Estimat Glomerular Filtration Rate > 60, BUN/ Creatinine Ratio 5, Glucose Level 57*L, Calcium Level 8.6, Phosphorus Level 2.3 , Magnesium Level 1.9 05/17/17 06:56: Glucometer 89 Microbiology 05/15/17 Blood Culture - Preliminary, Resulted No growth 05/12/17 MRSA Screen - Final, Complete MRSA not isolated Assessment/Plan Assessment/Plan Assessment/Plan 1.Spontaneous PTX during surgery requiring CT -CT d/c'd yesterday, no PTX on today's CXR 2.Bibasilar Atelectasis has developed increased oxygen demand and decreased saturation. improved with high flow humidified o2 -patient has underlying pulmonary issues and still requiring high level oxygen -repeat CXR in am, RT EZ pap ordered QID, encourage IS 3. s/p laparoscopic ERICKA and gastric sleeve resection -encourage ambulation, and try to increase PO intake -continue phase 1 liquids for 2 weeks. -home when respiratory status stable. Clinical Quality Measures DVT/VTE Risk/Contraindication: Risk Factor Score Per Nursin RFS Level Per Nursing on Admit: 4+=Very High JONATHAN BIRD DO May 17, 2017 10:54
--- NOTE | 2017-05-17 11:25 | Physical Therapy Daily Note ---
PT Daily Note-Current Subjective States that he is doing okay. Transfers Functional [place] Measure 0=Not Assessed/NA 4=Minimal Assistance 1=Total Assistance 5=Supervision or Setup 2=Maximal Assistance 6=Modified [place] 3=Moderate Assistance 7=Complete IndependenceIRFPAI Quality Coding Scale 6 Independent with activity with or without an assistive device 5 Patient requires set up or clean up by helper. Patient completes activity by themselves 4 Supervision or touching assist (CGA). Peck provide cues , steadying assist 3 The helper provides less than half the effort to complete the activity 2 The helper provides more than half the effort to complete the activity 1 Dependent. The helper does all the effort to complete an activity 7 Patient refused to complete or attempt activity 9 The patient did not perform the activity before the current illness or injury 88 Not attempted due to Medical conditions or safety concerns Transfers (B, C, W/C) (FIM): 5 Sit to/from Stand: 5 Bed to/from Chair: 5 Gait Training Gait (FIM): 1 Distance (FIM): 1=up to 49 ft Distance: 30' Gait Level of Assist: 5 Gait Persons Needed: 1 Gait Assistive Device: FWW Assessment Current Status: Excellent Progress Patient did well with gait. PT Air Quality Technician Goals Air Quality Technician Goals PT Prison Goals Time Frame: May 23, 2017 Transfers (B,C,W/C) (FIM): 5 Gait (FIM): 2 Distance: 50' Gait Level of Assist: 5 Gait Assistive Device: FWW PT Plan Treatment/Plan Treatment Plan: Continue Plan of Care Treatment Plan: Bed Mobility, Education, Functional Activity Elie, Functional Strength, Gait, Safety, Therapeutic Exercise, Transfers Treatment Duration: May 23, 2017 Visits Per Week: 5-6 Minutes/Day (M-F): 15-30 Minutes/Day (Sat/William): 15-30 Time/GCodes Time In: 1110 Time Out: 1120 Total Billed Treatment Time: 10' Total Billed Treatment 1, EX x 10 G Codes Necessary: CHRISTA Tripp PT May 17, 2017 11:25
[2017-05-17] MEDS ORDERED: TROUGH ORDER-PHARMACY XX NR ×2 (12:00→19:00)
--- NOTE | 2017-05-17 12:43 | Progress Note-Hospitalist ---
Progress Note HPI/CC on Admission CC: Medical management following a complicated gastric sleeve procedure with subsequent left pneumothorax HPI: This is a 66-year-old white male clinic patient of Lorraine Foster in [place] the presents to the ICU at [facility] transferred from [facility] from Dr. 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 Currently he is feeling well able to move around and pneumothorax chest tube has been clamped in preparation removal later today. Overall he did not require any type of ventilator support through the night and has had no issues since admitted to the ICU. Progress Notes/Assess & Plan Date Seen 05/17/17 Time Seen by Provider: 11:20 Admission Dx/Process Assessment: Complicated gastric sleeve procedure resulting in 4 hours of surgery with adhesions and left-sided pneumothorax status post chest tube placement Hypertension History of pancreatitis status post resection remotely Obstructive sleep apnea compliant with treatment DM GERD Diagonsis/Assessment & Plan Chest tube was removed yesterday but still having left-sided pain Easy Pap was ordered and overall aggressive incentive spirometry and nebulized treatments were ordered Will transfer to the floor Otherwise clear liquids are tolerated No bowel movement except for gas Will transfer orders including bowel regimen and soapsuds enema No fever, vital signs stable, pleasant, improved Regular rate and rhythm, clear to auscultation bilaterally but diminished in the bases with improved subtle crackles, improved air expansion No edema Assessment: s/p respiratory insufficiency due to bilateral pneumonia placed on empiric abx Complicated gastric sleeve procedure resulting in 4 hours of surgery with adhesions and left-sided pneumothorax status post chest tube placement POD # 4 Hypertension History of pancreatitis status post resection remotely Obstructive sleep apnea compliant with treatment DM GERD Plan: Maintain on all home meds Pain control Chest tube removal yesterday which has helped his pain Sleep apnea treatment Ambulate Breathing treatments to expand lungs Continue IS Continue O2 EZpap Suppository, then soap suds enema if needed Senna Scribed by Josefina Hurtado under the direct supervision of Dr. Winkler. EVERETT WINKLER DO May 17, 2017 12:43
[2017-05-17] MEDS ORDERED: LACTATED RINGERS 1,000 ML IV SCH (14:00)
[2017-05-17] MEDS: ROSUVASTATIN 20 MG (CRESTOR) TABLET PO SCH (20:25)
[2017-05-17] MEDS: amLODIPine 10 MG (NORVASC) TAB PO SCH (20:25)
[2017-05-17] MEDS: diphenhydrAMINE 25 MG TAB (BENADRYL) PO SCH (20:25)
[2017-05-17] MEDS: inSUlin DETERMIR 1 UNIT/0.01 ML (LEVEMIR) CHARGE PER UNIT SQ SCH (21:24)
[2017-05-18] MEDS: PIPERACILLIN SODIUM/TAZOBACTAM 4.5 GM in NS (IVPB) 100 ML IV SCH ×3 (02:11→18:12)
[2017-05-18] MEDS: RT-ALBUTEROL/IPRATROPIUM 3 ML (DUONEB) VIAL INH SCH ×6 (03:06→22:35)
[2017-05-18 04:29] VITALS: BP 134/61
[2017-05-18] MEDS: ENOXAPARIN 30 MG/0.3 ML (LOVENOX) SYR SC SCH ×2 (06:00→18:12)
[2017-05-18] MEDS: inSUlin ASPART (NovoLOG) 1 UNIT/0.01 ML (CHARGE PER UNIT) SC SCH ×3 (06:18→16:04)
[2017-05-18] MEDS: inSUlin (REGULAR) HUMAN 1 UNIT/0.01 ML (CHARGE PER UNIT) SC SCH ×4 (06:19→20:46)
[2017-05-18 07:43] VITALS: BP 142/69
[2017-05-18] MEDS: LACTULOSE SYRUP 10GM/15ML (ENULOSE) 30ML UDC PO SCH ×2 (09:18→20:52)
[2017-05-18] MEDS: LACTOBACILLUS Acidoph/Bulgar (LACTINEX/FLORANEX) TAB PO SCH ×2 (09:18→20:46)
[2017-05-18] MEDS: VENlafaxine XR 75 MG (EFFEXOR XR) CAP PO SCH (09:18)
[2017-05-18] MEDS: PANTOPRAZOLE 40 MG (PROTONIX) TAB PO SCH (09:18)
[2017-05-18] MEDS: FAMOTIDINE 20 MG (PEPCID) TABLET PO SCH ×2 (09:18→20:46)
[2017-05-18] MEDS: oxyCODONE 5 MG/5 ML ORAL SOLN (roxiCODONE) 5 ML UDC PO PRN (09:18)
[2017-05-18] MEDS: PREGABALIN 75 MG (LYRICA) CAP PO SCH ×2 (09:18→20:46)
[2017-05-18] MEDS: ASPIRIN E.C. 81 MG (ECOTRIN) TAB PO SCH (09:18)
[2017-05-18] MEDS: VANCOMYCIN 1250 MG/NS 250 ML IVPB IV SCH ×4 (10:36→20:46)
--- NOTE | 2017-05-18 11:18 | Diagnostic Imaging Report ---
Portable chest compared to prior study from May 17, 2017. INDICATION: Basilar atelectasis. FINDINGS: Low lung volumes are again demonstrated with discoid atelectasis at both lung bases. There is no large effusion or evidence of pneumothorax. Heart size and mediastinal contours are unchanged with some central pulmonary vascularity. Right PICC line is unchanged in position. IMPRESSION: 1. Low lung volumes with bilateral discoid atelectasis. 2. Mild enlargement of the cardiac silhouette with central pulmonary vascular congestion. Dictated by: Dictated on workstation # [id number]
--- NOTE | 2017-05-18 11:33 | Progress Note-Hospitalist ---
Progress Note HPI/CC on Admission CC: Medical management following a complicated gastric sleeve procedure with subsequent left pneumothorax HPI: This is a 66-year-old white male clinic patient of Lorraine Foster in [place] the presents to the ICU at [facility] transferred from [facility] from Dr. 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 Currently he is feeling well able to move around and pneumothorax chest tube has been clamped in preparation removal later today. Overall he did not require any type of ventilator support through the night and has had no issues since admitted to the ICU. Progress Notes/Assess & Plan Date Seen 05/18/17 Time Seen by Provider: 11:00 Admission Dx/Process Assessment: Complicated gastric sleeve procedure resulting in 4 hours of surgery with adhesions and left-sided pneumothorax status post chest tube placement Hypertension History of pancreatitis status post resection remotely Obstructive sleep apnea compliant with treatment DM GERD Diagonsis/Assessment & Plan Had large BM and that system is working very well Left sided CP much improved It is his bday today and wanted to go home but will need home O2 and wean down a little more to be able to be DC'ed but exam today was very good and will set up DC for Friday No fever, vital signs stable, pleasant, improved Regular rate and rhythm, clear to auscultation bilaterally much improved No edema Assessment: s/p respiratory insufficiency due to bilateral pneumonia placed on empiric abx Complicated gastric sleeve procedure resulting in 4 hours of surgery with adhesions and left-sided pneumothorax status post chest tube placement now DC Hypertension History of pancreatitis status post resection remotely Obstructive sleep apnea compliant with treatment DM GERD Plan: Maintain on all home meds Sleep apnea treatment Ambulate Breathing treatments to expand lungs Continue IS Continue O2 EZpap Home O2 DC home tomorrow EVERETT WINKLER DO May 18, 2017 11:33
--- NOTE | 2017-05-18 11:44 | Progress Note ---
Subjective Time Seen by Provider: 10:23 Subjective/Events-last exam Pt seen and examined. RT is slowly decreasing his O2 requirements. Pt denies trouble breathing. Pt wants to go home, because it is his birthday. Review of Systems General: No Chills, No Night Sweats HEENT: No Head Aches Pulmonary: No Cough Cardiovascular: No: Chest Pain, Palpitations Gastrointestinal: No: Nausea, Vomiting Objective Exam Vital Signs Date Time Temp Pulse Resp B/P (MAP) Pulse Ox O2 Delivery O2 Flow Rate FiO2 05/18/17 10:40 97 High Flow N/C 8.00 05/18/17 08:55 93 High Flow N/C 10.00 05/18/17 07:43 99.7 80 20 142/69 93 High Flow N/C 10.00 05/18/17 06:29 91 High Flow N/C 10.00 05/18/17 04:29 99.1 93 20 134/61 93 NIV CPAP 10.00 05/18/17 03:06 88 High Flow N/C 10.00 05/17/17 23:44 99.8 98 20 123/59 96 NIV CPAP 10.00 05/17/17 22:10 92 High Flow N/C 10.00 05/17/17 20:14 98.6 92 20 149/70 89 High Flow N/C 10.00 05/17/17 20:00 High Flow N/C 10.00 05/17/17 18:30 89 High Flow N/C 10.00 05/17/17 15:55 98.6 92 20 129/66 96 High Flow N/C 10.00 05/17/17 14:35 91 High Flow N/C 10.00 05/17/17 14:20 96.9 97 24 152/69 94 High Flow N/C 10.00 05/17/17 13:38 94 Vapotherm 19.00 90 05/17/17 13:00 83 19 133/65 05/17/17 13:00 95 05/17/17 12:00 88 22 152/69 98 NIV CPAP 12.00 05/17/17 12:00 93 Vapotherm 19.00 90 I & O 05/18/17 07:00 Intake Total 1455 ml Output Total 1900 ml Balance -445 ml Capillary Refill : Less Than 3 Seconds General Appearance: No Apparent Distress, WD/WN HEENT: PERRL/EOMI Respiratory: Crackles (at base), Decreased Breath Sounds (at the base), Other ( chest is tender at lower ribs, also at chest tube site) Cardiovascular: Regular Rate, Rhythm, No Murmur Gastrointestinal: normal bowel sounds, soft, other (incisions c/d/i) Extremity: Normal Capillary Refill Neurologic/Psychiatric: Alert, Oriented x3 Skin: Normal Color Lymphatic: No Adenopathy Results Lab Laboratory Tests 05/17/17 12:15: Vancomycin Level Trough 20.9H 05/17/17 16:06: Glucometer 127H 05/17/17 19:45: Vancomycin Level Trough 18.0 05/17/17 20:49: Glucometer 94 05/18/17 06:15: Glucometer 220H Microbiology 05/15/17 Blood Culture - Preliminary, Resulted No growth 05/12/17 MRSA Screen - Final, Complete MRSA not isolated Assessment/Plan Assessment/Plan Assessment/Plan 1.Spontaneous PTX during surgery requiring CT -CT d/c'd yesterday, site looks good, sutures in places, skin closed 2.Bibasilar Atelectasis has developed increased oxygen demand and decreased saturation. improved with high flow humidified O2 -patient has underlying pulmonary issues and still requiring oxygen, but decreasing - will try to get RT to wean faster, but safely -cont RT EZ pap QID, encourage IS 3. s/p laparoscopic ERICKA and gastric sleeve resection -encourage ambulation, and try to increase PO intake -continue phase 1 liquids for 2 weeks. -home when respiratory status stable. Clinical Quality Measures DVT/VTE Risk/Contraindication: Risk Factor Score Per Nursin RFS Level Per Nursing on Admit: 4+=Very High JONATHAN BIRD DO May 18, 2017 11:44
[2017-05-18 11:53] VITALS: BP 117/64
[2017-05-18 15:47] VITALS: BP 145/70
[2017-05-18 20:00] VITALS: BP 155/74
[2017-05-18] MEDS: amLODIPine 10 MG (NORVASC) TAB PO SCH (20:46)
[2017-05-18] MEDS: diphenhydrAMINE 25 MG TAB (BENADRYL) PO SCH (20:46)
[2017-05-18] MEDS: ROSUVASTATIN 20 MG (CRESTOR) TABLET PO SCH (20:46)
[2017-05-18] MEDS: inSUlin DETERMIR 1 UNIT/0.01 ML (LEVEMIR) CHARGE PER UNIT SQ SCH ×2 (20:49→20:50)
[2017-05-19] VITALS: BP 124/73
[2017-05-19] MEDS: PIPERACILLIN SODIUM/TAZOBACTAM 4.5 GM in NS (IVPB) 100 ML IV SCH ×2 (01:10→10:14)
[2017-05-19] MEDS: RT-ALBUTEROL/IPRATROPIUM 3 ML (DUONEB) VIAL INH SCH ×4 (01:22→14:00)
[2017-05-19 04:00] VITALS: BP 117/68
[2017-05-19] MEDS: inSUlin ASPART (NovoLOG) 1 UNIT/0.01 ML (CHARGE PER UNIT) SC SCH ×3 (06:20→16:28)
[2017-05-19] MEDS: inSUlin (REGULAR) HUMAN 1 UNIT/0.01 ML (CHARGE PER UNIT) SC SCH ×3 (06:26→16:28)
[2017-05-19] MEDS: oxyCODONE 5 MG/5 ML ORAL SOLN (roxiCODONE) 5 ML UDC PO PRN (06:26)
[2017-05-19] MEDS: ENOXAPARIN 30 MG/0.3 ML (LOVENOX) SYR SC SCH (06:26)
[2017-05-19 08:00] VITALS: BP 119/63
--- NOTE | 2017-05-19 08:11 | Pulmonary Progress Note ---
Subjective Time Seen by Provider: 08:10 Subjective/Events-last exam pt feels improved. Still has persistent leukocytosis and is requiring oxygen Exam Exam Vital Signs Date Time Temp Pulse Resp B/P (MAP) Pulse Ox O2 Delivery O2 Flow Rate FiO2 05/19/17 07:11 95 High Flow N/C 4.50 05/19/17 04:00 98.1 60 24 117/68 95 NIV CPAP 05/19/17 01:23 92 NIV Bilevel 5.00 05/19/17 00:00 98.4 78 20 124/73 95 NIV CPAP 05/18/17 22:35 98 High Flow N/C 6.00 05/18/17 20:45 High Flow N/C 6.00 05/18/17 20:00 96.0 89 20 155/74 93 High Flow N/C 6.00 05/18/17 18:40 96 High Flow N/C 6.00 05/18/17 15:47 98.0 93 18 145/70 95 High Flow N/C 6.00 05/18/17 14:43 94 High Flow N/C 6.00 05/18/17 11:53 97.9 83 20 117/64 92 High Flow N/C 6.00 05/18/17 11:43 95 6.00 05/18/17 10:40 97 High Flow N/C 8.00 05/18/17 08:55 93 High Flow N/C 10.00 I & O 05/19/17 07:00 Intake Total 1952.5 ml Output Total 550 ml Balance 1402.5 ml General Appearance: No Apparent Distress, WD/WN HEENT: PERRL/EOMI Respiratory: Crackles (at base), Decreased Breath Sounds (at the base), Other ( chest is tender at lower ribs, also at chest tube site) Cardiovascular: Regular Rate, Rhythm, No Murmur Capillary Refill: Less Than 3 Seconds Gastrointestinal: normal bowel sounds, soft, other (incisions c/d/i) Extremity: Normal Capillary Refill Neurologic/Psychiatric: Alert, Oriented x3 Skin: Normal Color Lymphatic: No Adenopathy Assessment/Plan Assessment/Plan S/p gastric sleeve - pain control spontaneous PTX - now resolved . Atelectasis with pneumonia and hypoxic respiratory failure -oxygen -SVN easy PAP -encourage IS x 10breaths Q1 hr WA - cefepime vanco -cultures are negative OLGA -He has CPAP at bedside CHF -monitor acute renal failure with metabolic acidosis -improving -monitor -IVF CXR, CT scan and labs reviewed. 232 Clinical Quality Measures DVT/VTE Risk/Contraindication: Risk Factor Score Per Nursin RFS Level Per Nursing on Admit: 4+=Very High EVERETT SEVILLA DO May 19, 2017 08:11
[2017-05-19] MEDS: LACTOBACILLUS Acidoph/Bulgar (LACTINEX/FLORANEX) TAB PO SCH (08:45)
[2017-05-19] MEDS: ASPIRIN E.C. 81 MG (ECOTRIN) TAB PO SCH (08:45)
[2017-05-19] MEDS: PREGABALIN 75 MG (LYRICA) CAP PO SCH (08:46)
[2017-05-19] MEDS: FAMOTIDINE 20 MG (PEPCID) TABLET PO SCH (08:46)
[2017-05-19] MEDS: LACTULOSE SYRUP 10GM/15ML (ENULOSE) 30ML UDC PO SCH (08:46)
[2017-05-19] MEDS: PANTOPRAZOLE 40 MG (PROTONIX) TAB PO SCH (08:46)
[2017-05-19] MEDS: VANCOMYCIN 1250 MG/NS 250 ML IVPB IV SCH ×2 (08:46)
[2017-05-19] MEDS: VENlafaxine XR 75 MG (EFFEXOR XR) CAP PO SCH (08:48)
--- NOTE | 2017-05-19 11:58 | Physical Therapy Progress Note ---
Therapy Progress Note PT visited with patient on any concerns upon his dismissal today. Patient reports he is ready to go home and has no c/o at this time or concerns. Dismiss from services at this time 1 visit YOJANA JOSEPH PT May 19, 2017 11:58
[2017-05-19 12:00] VITALS: BP 122/71
--- NOTE | 2017-05-19 12:32 | Progress Note-Hospitalist ---
Standard Progress Note Progress Notes/Assess & Plan Date Seen 05/19/17 Time Seen by Provider: 12:27 Diagnosis Assessment: Complicated gastric sleeve procedure resulting in 4 hours of surgery with adhesions and left-sided pneumothorax status post chest tube placement Hypertension History of pancreatitis status post resection remotely Obstructive sleep apnea compliant with treatment DM GERD Assess & Plan/Chief Complaint The patient is a 67-year-old white male who had a postoperative complication of left pneumothorax following a difficult surgery because of multiple adhesions in the process of placing a gastric sleeve. He has progressed satisfactorily and has been ambulating with oxygen post-chest tube removal. He is ready for discharge today. He has anxiously awaiting this. Physical exam: Nasal cannula O2 is in place. He speaks in complete sentences. Lungs show somewhat distant breath sounds. CV is regular without murmur. Extremities show no pedal edema. Impression: 1.resolution of postop pneumothorax on the left. 2.hypertension. 3.obstructive sleep apnea. 4.diabetes mellitus. Plan: Discharge. See the discharge sequence IWONA FERRARO MD May 19, 2017 12:32
[2017-05-19] MEDS: fentaNYL INJECTION 100 MCG/2 ML AMP IVP PRN (14:45)
[2017-05-19 16:21] VITALS: BP 136/67
[2017-05-19] MEDS ORDERED: TROUGH ORDER-PHARMACY XX NR (20:00)
--- NOTE | 2017-06-25 08:05 | DISCHARGE SUMMARY ---
DATE OF SERVICE: ATTENDING FITNESS SPECIALIST: Eleanor Foster. ADMISSION DIAGNOSIS: Morbid obesity, status post laparoscopic gastric sleeve resection with spontaneous left pneumothorax and chest tube placement. DISCHARGE DIAGNOSIS: Morbid obesity, status post laparoscopic gastric sleeve resection with spontaneous left pneumothorax and chest tube placement with respiratory insufficiency. PROCEDURES: None. COMPLICATIONS: None. OTHER DIAGNOSIS: Type I diabetes, hypertension, gastroesophageal reflux disease, congestive heart failure, degenerative joint disease, esophageal varices, glaucoma, obstructive sleep apnea. DISPOSITION: Home in stable condition. The patient is a 66-year-old male with morbid obesity as well as medical comorbidities related to his obesity including diabetes, hypertension, gastroesophageal reflux disease and degenerative joint disease. He underwent a laparoscopic gastric sleeve resection on 05/12/2017. During the process, he did have decreased oxygen saturations on the ventilator as well as decreased breath sounds of the left lung field. A chest x-ray was performed, which did show a significant pneumothorax of greater than 40%. While still on the ventilator, he underwent placement of a 26-Occitan chest tube. No air leak was identified. This surgery was done at [facility]; however, due to the complexity of the patient and medical comorbidities, it was advised to refer to higher level of care with ICU care as well as internal medicine and pulmonology. PAST MEDICAL HISTORY: Type I diabetes, hypertension, gastroesophageal reflux disease, CHF, degenerative joint disease, esophageal varices, glaucoma, obstructive sleep apnea. PAST SURGERIES: L3-L4 laminectomy in , L4-L5 laminectomy in . ERCP in . 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 Bilateral carpal tunnel release in . Left total knee arthroplasty in . Nerve stimulator placement 03/2016. ALLERGIES: REGLAN, CODEINE, METOPROLOL. CURRENT MEDICATIONS: Amlodipine 10 mg daily. Aspirin daily. Bupropion 150 mg daily, Furosemide 40 mg daily, Lantus 60 units daily, NovoLog insulin 45 units daily, Lisinopril 10 mg daily, Meloxicam 15 mg daily, Protonix 40 mg daily, Lyrica 75 mg daily, Crestor 20 mg daily, Ranexa 500 mg daily. SOCIAL HISTORY: Previous smoked at 3 packs a day for 20 years, quit . Previous chewing tobacco 2 years. Previous alcohol, quit . FAMILY HISTORY: Mother diabetes, hypertension. Father myocardial infarction age 59, hypertension. Sister type I diabetes, hypertension. Brother type 1 diabetes, stroke age 49, myocardial infarction age 44, hypertension. The patient was transferred and admitted to the intensive care unit. Internal medicine as well as pulmonology were consulted. He retained on the ventilator overnight; however, had a good tidal volume as well as arterial blood gasses and was extubated the following morning. He was able to do well; however, did require a significant oxygen support to keep his oxygen saturations up due to his underlying chronic pulmonary issues. His chest tube was monitored with no air leak as well as no drainage. Serial chest x-rays were performed, which did show some mild consolidation; however, no recurrent pneumothorax. From a gastrointestinal standpoint, he was doing well and was tolerating a phase I clear liquid diet without any difficulty. He also had good urine output and was able to ambulate and had adequate pain control. Over time, the patient continued to improve and was placed on high-flow humidified oxygen nasal canula initially at 60-70%; however, over time and ambulation, an incentive spirometer as well as further medical treatment, this was able to be weaned to approximately 15%. He was also able to do all of his activities of daily living. He was discharged home with home health on 05/19/2017. HOME GOING INSTRUCTIONS: Continue phase I clear liquid diet for a total of 2 weeks, then advance to a soft diet. Ambulate as much as possible. Continue to wean oxygen as appropriate. Resume previous home medications. Roxicet p.r.n., Protonix 40 mg daily, Zofran 4 mg p.r.n. He is to followup in the office in approximately 2 weeks. Job ID: [id number] DocumentID: [id number] Dictated Date: 06/24/2017 16:20:08 Party Plan Sales Director Date: 06/25/2017 08:04:13 Dictated By: JOSEPHINE NOBLE MD
== END 2017-05-19 18:15 | disposition home or self-care (01) | DRG 199 ==
LOC: ICU 18:21 → 4TH 05-13 16:01 → ICU 05-14 16:45 → 4TH 05-17 14:00
PROVIDERS: ADMIT Surgery; ATTEND Surgery
PROC: 02HV33Z Insertion of Infusion Device into Superior Vena Cava, Percutaneous Approach (ICD-10-PCS; principal; 2017-05-15)
DX: J95.811 Postprocedural pneumothorax (principal); J18.9 Pneumonia, unspecified organism; J96.91 Respiratory failure, unspecified with hypoxia; K74.60 Unspecified cirrhosis of liver; N17.9 Acute kidney failure, unspecified; E87.2 Acidosis; G47.33 Obstructive sleep apnea (adult) (pediatric); I11.0 Hypertensive heart disease with heart failure; I50.9 Heart failure, unspecified; E11.9 Type 2 diabetes mellitus without complications; E66.9 Obesity, unspecified; E87.5 Hyperkalemia; M54.9 Dorsalgia, unspecified; K21.9 Gastro-esophageal reflux disease without esophagitis; H91.93 Unspecified hearing loss, bilateral; Z87.19 Personal history of other diseases of the digestive system; Z87.891 Personal history of nicotine dependence; Z89.412 Acquired absence of left great toe; Z90.411 Acquired partial absence of pancreas; Z68.34 Body mass index [BMI] 34.0-34.9, adult
CPT/HCPCS: 36415; 36569; 71010; 71275; 76937; 80048; 80053; 80202; 81000; 82150; 82805; 82962; 83605; 83690; 83735; 84100; 85007; 85025; 85027; 87040; 87081; 93005; 94640; 94664; 94760; 94761

== ENCOUNTER → 2017-06-09 | Outpatient (CLI) | payer MEDICARE, OTHER ==
[~2017-06-09] MED LIST: AMLO10TA2 PO; ASPI-983 PO; DIPH25CA79 PO; FURO20TA4 PO; INSU100I10 SC; INSU100I23 SC; ONDA4TAB10 PO; PANT40TA3 PO; PREG75CA PO; ROSU20TA PO; VENL75CA93 PO
--- NOTE | 2017-06-09 12:11 | Diagnostic Imaging Report ---
PA and lateral views of the chest. INDICATION: Shortness of breath. COMPARISON: 05/18/2017. FINDINGS: The lungs are clear. There are calcified granulomas seen. No effusion or pneumothorax. The mediastinum and katty appear unremarkable. There is a posterior epidural pulse generator seen in the mid to lower thoracic spine. IMPRESSION: No acute process. Dictated by: Dictated on workstation # [id number]
== END ==
LOC: RAD 10:43
PROVIDERS: ATTEND Nurse Practitioner Family
DX: R06.00 Dyspnea, unspecified (principal); R06.02 Shortness of breath; Z87.891 Personal history of nicotine dependence
CPT/HCPCS: 71020